=== PATIENT | male | born 1965 | race African-American/Black ===

== ENCOUNTER 2016-10-06 18:00 | Emergency (ER) | payer OTHER, SELFPAY ==
[~2016-10-06] VITALS: Ht 182.9 cm; Wt 69.2 kg
[~2016-10-06 18:00] MED LIST: AMLO25TA PO; HYDR-3716 PO; LISI40TAB PO; OMEP40CA2 PO
[2016-10-06 18:01] VITALS: BP 130/88
[2016-10-06] MEDS ORDERED: LISI40TAB PO ×2 (18:10→18:42)
[2016-10-06] MEDS ORDERED: OMEP40CA2 PO ×2 (18:10→18:42)
[2016-10-06] MEDS ORDERED: HYDR-3716 PO (18:10)
[2016-10-06] MEDS ORDERED: AMLO25TA PO (18:10)
[2016-10-06] MEDS ORDERED: NORV5TAB PO (18:42)
[2016-10-06] MEDS ORDERED: VICO7.5T11 PO (18:42)
== END 2016-10-06 18:52 | disposition home or self-care (01) ==
LOC: M ED 18:00
DX: Z76.0 Encounter for issue of repeat prescription (principal); I10 Essential (primary) hypertension; K27.9 Peptic ulcer, site unspecified, unspecified as acute or chronic, without hemorrhage or perforation; Z79.899 Other long term (current) drug therapy

== ENCOUNTER 2016-10-12 12:18 | Emergency (ER) | payer OTHER, SELFPAY ==
[~2016-10-12] VITALS: Ht 182.9 cm; Wt 70.7 kg
[2016-10-12 12:18] VITALS: BP 113/69
[~2016-10-12 12:18] MED LIST changes: +NORV5TAB PO; +VICO7.5T11 PO
[2016-10-12] MEDS ORDERED: NORC10TA21 PO (12:40)
[2016-10-12] MEDS ORDERED: NORCOTAB PO (13:18)
== END 2016-10-12 13:34 | disposition home or self-care (01) ==
LOC: M ED 12:18
DX: G89.29 Other chronic pain (principal); M54.5 Low back pain; Z76.0 Encounter for issue of repeat prescription; K28.3 Acute gastrojejunal ulcer without hemorrhage or perforation; Z79.899 Other long term (current) drug therapy

== ENCOUNTER 2016-10-16 11:32 | Emergency (ER) | payer OTHER, SELFPAY ==
[~2016-10-16] VITALS: Ht 182.9 cm; Wt 72.2 kg
[~2016-10-16 11:32] MED LIST changes: +NORC10TA21 PO; +NORCOTAB PO
[2016-10-16] MEDS ORDERED: LORT1TAB2 PO (13:53)
[2016-10-16 14:04] VITALS: BP 132/70
== END 2016-10-16 14:13 | disposition home or self-care (01) ==
LOC: M ED 11:32
DX: Z76.0 Encounter for issue of repeat prescription (principal); G89.29 Other chronic pain; M54.9 Dorsalgia, unspecified; F17.200 Nicotine dependence, unspecified, uncomplicated; Z79.899 Other long term (current) drug therapy

== ENCOUNTER 2016-11-09 12:42 | Emergency (ER) | payer OTHER, SELFPAY ==
[~2016-11-09] VITALS: Ht 182.9 cm; Wt 77.3 kg
[2016-11-09 12:42] VITALS: BP 120/72
[~2016-11-09 12:42] MED LIST changes: +LORT1TAB2 PO
[2016-11-09] MEDS ORDERED: ACETAMINOPH W/CODEINE #3 TAB UD PO ONE (13:30)
== END 2016-11-09 13:38 | disposition home or self-care (01) ==
LOC: M ED 12:42
DX: Z76.0 Encounter for issue of repeat prescription (principal); Z72.89 Other problems related to lifestyle; G89.29 Other chronic pain; M54.5 Low back pain; I10 Essential (primary) hypertension; K28.9 Gastrojejunal ulcer, unspecified as acute or chronic, without hemorrhage or perforation; Z79.899 Other long term (current) drug therapy; Z79.891 Long term (current) use of opiate analgesic

== ENCOUNTER 2018-02-23 13:32 | Emergency (ER) | payer MEDICAID, SELFPAY ==
[2018-02-23] MEDS: NORCO, ANEXSIA 5/325MG TABLET (HYDROcodone/ACETAMINOPHEN) PO (14:20)
== END 2018-02-23 14:23 | disposition home or self-care (01) ==
LOC: M ED 13:32
DX: Z76.0 Encounter for issue of repeat prescription (principal); I10 Essential (primary) hypertension; M54.5 Low back pain; K27.9 Peptic ulcer, site unspecified, unspecified as acute or chronic, without hemorrhage or perforation; Z87.891 Personal history of nicotine dependence; Z79.899 Other long term (current) drug therapy
CPT/HCPCS: 99282

== ENCOUNTER 2018-02-28 14:16 | Emergency (ER) | payer MEDICAID ==
[2018-02-28] MEDS: NORCO 5/325MG TABLET (BULK FOR ED) PO (18:30)
== END 2018-02-28 18:34 | disposition home or self-care (01) ==
LOC: M ED 14:16
DX: G89.29 Other chronic pain (principal); M54.9 Dorsalgia, unspecified; I10 Essential (primary) hypertension; M41.9 Scoliosis, unspecified; M51.9 Unspecified thoracic, thoracolumbar and lumbosacral intervertebral disc disorder; Z79.899 Other long term (current) drug therapy
CPT/HCPCS: 99283

== ENCOUNTER 2018-03-08 12:03 | Emergency (ER) | payer MEDICAID | END 2018-03-08 13:01 | disposition home or self-care (01) | LOC: M ED 12:03 | DX: G89.29 Other chronic pain (principal); M54.9 Dorsalgia, unspecified; I10 Essential (primary) hypertension; Z76.0 Encounter for issue of repeat prescription | CPT/HCPCS: 99282 ==

== ENCOUNTER 2018-03-14 18:03 | Emergency (ER) | payer MEDICAID ==
[2018-03-14] MEDS: METHOCARBAMOL 750 MG TAB PO (21:15)
[2018-03-14] MEDS: NORCO 5/325MG TABLET (BULK FOR ED) PO (21:15)
== END 2018-03-14 21:16 | disposition home or self-care (01) ==
LOC: M ED 18:03
DX: Z76.0 Encounter for issue of repeat prescription (principal); G89.29 Other chronic pain; M54.5 Low back pain; I10 Essential (primary) hypertension; K21.9 Gastro-esophageal reflux disease without esophagitis; Z79.899 Other long term (current) drug therapy
CPT/HCPCS: 99283

== ENCOUNTER → 2018-04-11 | Outpatient (REF) | payer MEDICAID, OTHER ==
[~2018-04-11] MED LIST changes: +AMLO5TAB6 PO; +LISI40TA PO; -LISI40TAB PO; +NAPR-50 PO; +ROBA500T PO
[2018-04-11 10:35] LABS: BLOOD UREA NITROGEN 14 MG/DL (7-18); CALCIUM LEVEL 9.1 MG/DL (8.5-10.1); CARBON DIOXIDE LEVEL 24 MEQ/L (21-32); CHLORIDE LEVEL 106 MEQ/L (98-107); CHOLESTEROL LEVEL 224 MG/DL (<200); CHOLESTEROL RISK RATIO 3.672 (<5); CREATININE FOR GFR 1.38 MG/DL (0.70-1.30); GLOMERULAR FILTRATION RATE > 60.0 (>56); GLUCOSE, FASTING 98 MG/DL (70-100); HDL CHOLESTEROL 61 MG/DL (>40); LDL CHOLESTEROL 148 MG/DL (<100); NON-HDL-C 163 MG/DL; POTASSIUM SERUM 4.9 MEQ/L (3.5-5.1); SODIUM LEVEL 139 MEQ/L (136-145); TRIGLYCERIDES LEVEL 73 MG/DL (<150)
== END ==
LOC: M SFHCPLAZ 08:21
PROVIDERS: ATTEND Family Medicine
DX: Z13.1 Encounter for screening for diabetes mellitus (principal); Z13.220 Encounter for screening for lipoid disorders

== ENCOUNTER → 2019-04-10 | Outpatient (REF) | payer MEDICAID, OTHER ==
[~2019-04-10] MED LIST changes: +HYDR-3715 PO; -NAPR-50 PO; +NAPR-837 PO; -NORC10TA21 PO; +NORC1TAB5 PO; -NORCOTAB PO; -OMEP40CA2 PO; +OMEP40CA97 PO; -VICO7.5T11 PO; +VICO7.5T12 PO
== END ==
LOC: M SFHCPLAZ 15:33
PROVIDERS: ATTEND Internal Medicine
DX: Z53.9 Procedure and treatment not carried out, unspecified reason (principal)

== ENCOUNTER → 2019-09-06 | Outpatient (REF) | payer OTHER | LOC: M LAB REF 12:28 | PROVIDERS: ATTEND Surgery | DX: Z11.59 Encounter for screening for other viral diseases (principal) ==

== ENCOUNTER → 2019-12-01 | Outpatient (CLI) | payer OTHER ==
[~2019-12-01] MED LIST changes: +AMLO1TAB24 PO; -AMLO5TAB6 PO
[2019-12-01 14:43] LABS: ALBUMIN 3.9 GM/DL (3.2-5.2); ALT/SGPT 22 U/L (12-78); BILIRUBIN,TOTAL 0.2 MG/DL (0.2-1.0); BLOOD UREA NITROGEN 15 MG/DL (7-18); CALCIUM LEVEL 9.8 MG/DL (8.5-10.1); CARBON DIOXIDE LEVEL 29 MEQ/L (21-32); CHLORIDE LEVEL 106 MEQ/L (98-107); CREATININE FOR GFR 1.44 MG/DL (0.70-1.30); GLOMERULAR FILTRATION RATE > 60.0 (>56); GLUCOSE, FASTING 94 MG/DL (70-100); POTASSIUM SERUM 4.9 MEQ/L (3.5-5.1); SODIUM LEVEL 141 MEQ/L (136-145); TOTAL PROTEIN 7.7 GM/DL (6.4-8.2)
[2019-12-01 18:23] LABS: HEPATITIS C VIRUS ABY INDEX 0.2 INDEX (<0.8)
== END ==
LOC: M PLALAB 11:42
PROVIDERS: ATTEND Student in an Organized Health Care Education/Training Program
DX: G89.29 Other chronic pain (principal)

== ENCOUNTER → 2019-12-25 | Outpatient (REF) | payer OTHER ==
[2019-12-28 09:10] LABS: CANNABINOID, URINE Positive (Cutoff=20); CARBOXY THC (GC/MS) 79 ng/mL (Cutoff=10); CREATININE, URINE 52.7 mg/dL (20.0-300.0)
== END ==
LOC: M LAB REF 17:50
PROVIDERS: ATTEND Student in an Organized Health Care Education/Training Program
DX: M19.90 Unspecified osteoarthritis, unspecified site (principal)

== ENCOUNTER → 2020-06-03 | Outpatient (REF) | payer OTHER ==
[~2020-06-03] MED LIST changes: -LISI40TA PO; +LISI40TA4 PO
== END ==
LOC: M LAB REF 15:38
PROVIDERS: ATTEND Surgery
DX: R97.20 Elevated prostate specific antigen [PSA] (principal)

== ENCOUNTER → 2020-09-05 | Outpatient (REF) | payer OTHER | LOC: M LAB REF 09:24 | PROVIDERS: ATTEND Surgery | DX: U07.1 COVID-19 (principal) ==

== ENCOUNTER → 2020-12-17 | Outpatient (REF) | payer MEDICAID ==
[~2020-12-17] MED LIST changes: +OMEP40CA4 PO; -OMEP40CA97 PO
== END ==
LOC: M SFHCPLAZ 11:37
PROVIDERS: ATTEND Family Medicine
DX: Z53.9 Procedure and treatment not carried out, unspecified reason (principal); M54.42 Lumbago with sciatica, left side

== ENCOUNTER → 2021-01-22 | Outpatient (REF) | payer MEDICAID | LOC: M SFHCPLAZ 13:09 | PROVIDERS: ATTEND Student in an Organized Health Care Education/Training Program | DX: Z02.89 Encounter for other administrative examinations (principal) ==

== ENCOUNTER 2021-02-04 05:44 | Observation (INO) | payer MEDICAID, OTHER ==
[~2021-02-04] VITALS: Ht 182.9 cm; Wt 83.5 kg
--- OUTSIDE RECORDS SUMMARY | 2021-02-04 05:48 | CCD ---
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 Active confirmed 517321874 Problem Lumbago with sciatica, left side M54.42 Active confirmed 294195994 Problem History of alcohol abuse F10.11 Active confirmed 247674620 Problem Seasonal allergic rhinitis due to pollen J30.1 Active confirmed 08626450 Problem Lumbago with sciatica, right side M54.41 Active confirmed 647331966195266 Problem Other chronic pain G89.29 Active confirmed 8 6886103 Problem Gastroesophageal reflux disease without esophagitis K21.9 Active confirmed 541965266 Problem Essential hypertension I10 Active confirmed 22068580 ALLERGIES No Known Allergies ENCOUNTERS from 1965 to 2021-01-14 Encounter Location Date Provider Diagnosis [address] [phone] [place] [address] 15 Dec, 2020 Walker Parks Other chronic pain G89.29 an d Viral upper respiratory tract infection J06.9 IMMUNIZATIONS Vaccine Route Administration Date Status Influenza Denied Unknown Apr 11, 2018 Refused SOCIAL HISTORY Tobacco Use: Social History Observation Description Date Details (start date - stop date) Former Smoker Sex Assigned At : Social History Observation Description Sex Assigned At Unknown Education: Question Answer Notes Level of Education: High School Audit Question Answer Notes Total Score: 1 Interpretation: Alcohol Education Language: Question Answer Notes Languages spoken: Irish Hinduism: Question Answer Notes Hinduism 06 Pentecostalism Sexual Hx: Question Answer Notes Had sex in the last 12 months (vaginal, oral, or anal)? No Have you ever had an STD? No Drug and Alcohol Question Answer Notes Total Score: 0 Interpretation: No problems reported Alcohol Screening: Question Answer Notes Did you have a drink containing alcohol in the past year? No Points 0 Interpretation Negative Tobacco Use: Question Answer Notes Are you a: former smoker How long has it been since you last smoked? 5-10 years REASON FOR REFERRAL No Information VITAL SIGNS No information MEDICATIONS Medication SIG (Take, Route, Frequency, Duration) Notes Start Da te End Date Status Ondansetron HCl 4 MG 1 tablet Orally Once a day for 14 day(s) Apr, Active Gabapentin 800 MG 1 tablet Orally three times daily for 30 days Apr, Active amLODIPine Besylate 5 MG 1 tablet Orally Once a day for 30 Days Active Percocet 5-325 MG 1 tablet as needed Orally every 6 hrs for 12 d ays Nov, Not-Taking Omeprazole 40 MG 1 capsule Orally Once a day for 30 days Active Lisinopril 40 MG 1 tablet Orally Once a day for 30 days Active Loratadine 10 MG 1 tablet Orally Once a day for 30 day(s) Nov, Active Percocet 5-325 MG 1 tablet as needed Orally every 6 hrs for 28 d ays Dec, Active Ibuprofen 600 MG 1 tablet with food or milk a s needed Orally with food Three times a day for 14 day(s) Apr, Not-Ta unruly PROCEDURES No Information RESULTS No Results REASON FOR VISIT refills MEDICAL (GENERAL) HISTORY Type Description Date Medical History Reflux Medical History Hypertension, goal < 140/< 90 Medical History Scoliosis (juvenile) with de generative back disease, on Percocet, with plans to wean (see below) Surgical History Denies Hospitalization History Denies Goals Section No Information Health Concerns No Information MEDICAL EQUIPMENT No Information MENTAL STATUS No Information FUNCTIONAL STATUS No Information ASSESSMENTS Encounter Date Diagnosis Assessment Notes Treatment Notes Treatm ent Clinical Notes Dec, Other chronic pain (ICD-10 - G89.29) Dec, Viral upper respiratory tract infection (ICD-10 - J06.9) PLAN OF TREATMENT Medication Medication Name Sig Start Date Stop Date Ondansetron HCl 4 MG 1 tablet Orally Once a day for 14 day(s) Apr, Loratadine 10 MG 1 tablet Orally Once a day for 30 day(s) Nov Percocet 5-325 MG 1 tablet as needed Orally every 6 hrs fo r 28 days Dec, Lisinopril 40 MG 1 tablet Orally Once a day for 30 days Gabapentin 800 MG 1 tablet Orally three times daily for 30 days Apr, Omeprazole 40 MG 1 capsule Orally Once a day for 30 days Next Appt Details Provider Name:Walker Parks, 2021-01-28 11: 30:00 AM, [address] [facility], , [place], [address], Insurance Providers Payer Name Payer Address Payer Phone Insured Name Patient Relati onship to Insured Coverage Start Date Coverage End Date MEDICAID [employer] [address] [facility] [address] LARON STROUD JR self
--- OUTSIDE RECORDS SUMMARY | 2021-02-04 05:48 | CCD ---
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 Active confirmed 011423236 Problem Lumbago with sciatica, left side M54.42 Active confirmed 881655813 Problem History of alcohol abuse F10.11 Active confirmed 542689822 Problem Seasonal allergic rhinitis due to pollen J30.1 Active confirmed 45841406 Problem Lumbago with sciatica, right side M54.41 Active confirmed 513531573839029 Problem Other chronic pain G89.29 Active confirmed 8 4837805 Problem Gastroesophageal reflux disease without esophagitis K21.9 Active confirmed 968188434 Problem Essential hypertension I10 Active confirmed 74670831 ALLERGIES No Known Allergies ENCOUNTERS from 1965 to 2021-01-21 Encounter Location Date Provider Diagnosis [address] [phone] [place] [address] Dec, Walker Parks IMMUNIZATIONS Vaccine Route Administration Date Status Influenza [...] Education Language: Question Answer Notes Languages spoken: Lithuanian Islam: Question Answer Notes Islam 06 Congregation Sexual Hx: Question Answer Notes Had sex [...] Information RESULTS No Results REASON FOR VISIT wanting to speak to a cyber workforce developer and manager (GENERAL) HISTORY Type Description Date Medical History Reflux Medical History Hypertension, goal < 140/< 90 Medical History Scoliosis (juvenile) with de generative back disease, on Percocet, with plans to wean (see below) Surgical History Denies Hospitalization History Denies Goals Section No Information Health Concerns No Information MEDICAL EQUIPMENT No Information MENTAL STATUS No Information FUNCTIONAL STATUS No Information ASSESSMENTS No Information PLAN OF TREATMENT Medication Medication Name Sig [...] Name:Walker Parks, 2021-01-28 11: 30:00 AM, [address] [facility], , [place], [address], Insurance Providers Payer Name Payer Address Payer Phone Insured Name Patient Relati onship to Insured Coverage Start Date Coverage End Date MEDICAID [employer] [address] [facility] [address] LARON STROUD JR self
--- OUTSIDE RECORDS SUMMARY | 2021-02-04 05:48 | CCD ---
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 Active confirmed 356413487 Problem Lumbago with sciatica, left side M54.42 Active confirmed 440591679 Problem History of alcohol abuse F10.11 Active confirmed 425455854 Problem Seasonal allergic rhinitis due to pollen J30.1 Active confirmed 68402842 Problem Lumbago with sciatica, right side M54.41 Active confirmed 246939430442785 Problem Other chronic pain G89.29 Active confirmed 8 8849116 Problem Gastroesophageal reflux disease without esophagitis K21.9 Active confirmed 761868516 Problem Essential hypertension I10 Active confirmed 38880215 ALLERGIES No Known Allergies ENCOUNTERS from 1965 to 2021-01-07 Encounter Location Date Provider Diagnosis [address] [phone] [place] [address] Nov, Walker Parks IMMUNIZATIONS Vaccine Route Administration Date [...] Education Language: Question Answer Notes Languages spoken: Thai Orthodoxy: Question Answer Notes Orthodoxy 06 Christianity Sexual Hx: Question Answer Notes Had sex [...] Notes Start Da te End Date Status Loratadine 10 MG 1 tablet Orally Once a day for 30 day(s) Nov, Active Ondansetron HCl 4 MG 1 tablet Orally Once a day for 14 day(s) Apr, Active Ibuprofen 600 MG 1 tablet with food or milk a s needed Orally with food Three times a day for 14 day(s) Apr, Not-Ta unruly amLODIPine Besylate 5 MG 1 tablet Orally Once a day for 30 Days Active Percocet 5-325 MG 1 tablet as needed Orally every 6 hrs for 28 d ays Nov, Active Gabapentin 800 MG 1 tablet Orally three times daily for 30 days Apr, Active Lisinopril 40 MG 1 tablet Orally Once a day for 30 Active Percocet 5-325 MG 1 tablet as needed Orally every 6 hrs for 12 d ays Nov, Not-Taking Omeprazole 40 MG 1 capsule Orally Once a day for 30 days Active PROCEDURES No Information RESULTS No Results REASON FOR VISIT paperwork for [facility] MEDICAL (GENERAL) HISTORY Type Description Date Medical [...] Medication Name Sig Start Date Stop Date Percocet 5-325 MG 1 tablet as needed Orally every 6 hrs fo r 28 days Nov, Loratadine 10 MG 1 tablet Orally Once a day for 30 day(s) Nov Next Appt Details Provider Name:Walker Parks, 2021-01-28 11: 30:00 AM, [address] [facility], , [place], [address], Insurance Providers Payer Name Payer Address Payer Phone Insured Name Patient Relati onship to Insured Coverage Start Date Coverage End Date MEDICAID [employer] [address] [facility] [id number] LARON STROUD JR self
--- OUTSIDE RECORDS SUMMARY | 2021-02-04 05:48 | CCD ---
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 Active confirmed 346677427 Problem Lumbago with sciatica, left side M54.42 Active confirmed 707694969 Problem History of alcohol abuse F10.11 Active confirmed 124939567 Problem Seasonal allergic rhinitis due to pollen J30.1 Active confirmed 17375759 Problem Lumbago with sciatica, right side M54.41 Active confirmed 622553857012082 Problem Other chronic pain G89.29 Active confirmed 8 0134388 Problem Gastroesophageal reflux disease without esophagitis K21.9 Active confirmed 952754887 Problem Essential hypertension I10 Active confirmed 78634206 ALLERGIES No Known Allergies ENCOUNTERS from 1965 to 2021-01-23 Encounter Location Date Provider Diagnosis [facility] Resident [address] [facility] [address] [phone] [place] [address] Dec, Walker Parks Lumbago with sciatic a, left side M54.42 IMMUNIZATIONS Vaccine Route Administration Date Status Influenza [...] Education Language: Question Answer Notes Languages spoken: Belarusian Sikh: Question Answer Notes Sikh 06 Worship Sexual Hx: Question Answer Notes Had sex [...] times daily for 30 days Apr, Active Ibuprofen 600 MG 1 tablet with food or milk a s needed Orally with food Three times a day for 14 day(s) Apr, Not-Ta unruly amLODIPine Besylate 5 MG 1 tablet Orally Once a day for 30 Days Active Percocet 5-325 MG 1 tablet as needed Orally every 6 hrs for 7 da ys Dec, Active Lisinopril 40 MG 1 tablet Orally [...] Information RESULTS No Results REASON FOR VISIT No Information MEDICAL (GENERAL) HISTORY Type Description Date Medical [...] Treatment Notes Treatm ent Clinical Notes Dec, Lumbago with sciatica, left side (ICD-10 - M54.4 2) PLAN OF TREATMENT Medication Medication Name Sig Start Date Stop Date Ondansetron HCl 4 MG 1 tablet Orally Once a day for 14 day(s) Apr, Loratadine 10 MG 1 tablet Orally Once a day for 30 day(s) Nov Omeprazole 40 MG 1 capsule Orally Once a day for 30 days Lisinopril 40 MG 1 tablet Orally Once a day for 30 days Gabapentin 800 MG 1 tablet Orally three times daily for 30 days Apr, Percocet 5-325 MG 1 tablet as needed Orally every 6 hrs for 7 da ys 28 Dec, 2020 Next Appt Details Provider Name:Walker Parks, 2021-01-28 11: 30:00 AM, [address] [facility], , [place], [address], Insurance Providers Payer Name Payer Address Payer Phone Insured Name Patient Relati onship to Insured Coverage Start Date Coverage End Date MEDICAID [employer] [address] [facility] [address] LARON STROUD JR self
--- OUTSIDE RECORDS SUMMARY | 2021-02-04 05:48 | CCD ---
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 Active confirmed 035340009 Problem Lumbago with sciatica, left side M54.42 Active confirmed 693668175 Problem History of alcohol abuse F10.11 Active confirmed 865372309 Problem Seasonal allergic rhinitis due to pollen J30.1 Active confirmed 67991283 Problem Lumbago with sciatica, right side M54.41 Active confirmed 648643598064978 Problem Other chronic pain G89.29 Active confirmed 8 3988688 Problem Gastroesophageal reflux disease without esophagitis K21.9 Active confirmed 024790454 Problem Essential hypertension I10 Active confirmed 01266091 ALLERGIES No Known Allergies ENCOUNTERS from 1965 to 2021-01-12 Encounter Location Date Provider Diagnosis [facility] Resident [address] [facility] [address] [phone] [place] [address] Nov, Walker Parks Lumbago with sciatic a, left side M54.42 ; Health maintenance examination Z00.00 ; Other chronic pain G89.29 and Seasonal allergic rhinitis due to pollen J30.1 IMMUNIZATIONS Vaccine Route Administration Date Status Influenza [...] Education Language: Question Answer Notes Languages spoken: Anguillan Hoahaoism: Question Answer Notes Hoahaoism 06 Zoroastrian Sexual Hx: Question Answer Notes Had sex [...] last smoked? 5-10 years REASON FOR REFERRAL from 1965 to 2021-01-12 Reason Dear , my patient is due for screening colonoscopy. Please evaluate and treat. Thank you Diagnosis 1 Health maintenance examinati on (00.) Referral Organization [facility] Resident Referring Provider First Name Walker Referring Provider Last Name Kasey Referring Provider Specialty Family Medicine Referred Provider MARIELLA FABIAN Referral Priority Routine VITAL SIGNS Weight 178.2 lbs Nov, Weight-kg 80.83 kg Nov, Height 72.5 in Nov, BMI 23.83 kg/m2 Nov, Heart Rate 64 /min Nov, Respiratory Rate 18 /min Nov, Temperature 99.2 degrees Fahrenheit Nov, Oximetry 97 Nov, Blood pressure systolic 118 mm Hg Nov, Blood pressure diastolic 76 mm Hg Nov, MEDICATIONS Medication SIG (Take, Route, Frequency, Duration) [...] day for 14 day(s) Apr, Not-Ta unruly Gabapentin 800 MG 1 tablet Orally three times daily for 30 days Apr, Active Omeprazole 40 MG 1 capsule Orally Once a day for 30 days Active Percocet 5-325 MG 1 tablet as needed Orally every 6 hrs for 12 d ays Nov, Not-Taking Lisinopril 40 MG 1 tablet Orally Once a day for 30 Active amLODIPine Besylate 5 MG 1 tablet Orally Once a day for 30 Days Active Percocet 5-325 MG 1 tablet as needed Orally every 6 hrs for 28 d ays Nov, Active PROCEDURES No Information RESULTS No Results REASON FOR VISIT Annual Wellness MEDICAL (GENERAL) HISTORY Type Description Date Medical [...] Notes Treatment Notes Treatm ent Clinical Notes Nov, Lumbago with sciatica, left side (ICD-10 - M54.4 2) Reference #:[id number] last filled 12/17/2020 presciber id: [id number] 28 day supply qt: 112 sent today for the patient. Refilling Percocet for the patient on which his pain has been stable for years. We will closely follow him up and get repeat drug evaluations for him to be able to continuously stay on pain medications. Patient was explained the process. Patient verbalized understanding Nov, Health maintenance examination (ICD-10 - Z00.00) Patient reports no acute complaints except for the pain. His chronic conditions continue to remain stable. He takes his medications as prescribed. Denies any side effects from being on medication. 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 But ever since he stopped his GERD has improved. Continues taking omeprazole 40 mg. Patient was told treatment of 8 weeks should be sufficient which the patient has completed already. Side effects of omeprazole were described to the patient. Patient verbalized understanding We talked about switching to H2 receptor blockers. However he thinks he is stable on omeprazole and does not want to change at the moment. patient is due for colonoscopy. Referral to Dr. Fabian has been sent. Patient has not due for any vaccinations today. Patient continues to be sober. Denies any kind of alcohol intake. I will follow-up with him in the next 4-6 weeks because of him being on opioids. Nov, Other chronic pain (ICD-10 - G89.29) Nov, Seasonal allergic rhinitis due to pollen (ICD-10 - J30.1) Patient was advised to wear a mask outdoors. He does not complain of gasping for air or his throat closing up completely. No worsening of his allergies. PLAN OF TREATMENT Medication Medication Name Sig Start Date Stop Date Gabapentin 800 MG 1 tablet Orally three times daily for 30 days Apr, Loratadine 10 MG 1 tablet Orally Once a day for 30 day(s) Nov Percocet 5-325 MG 1 tablet as needed Orally every 6 hrs fo r 28 days Nov, Treatment Notes Assessment Notes Clinical Notes Lumbago with sciatica, left side Referen ce #:[id number] filled 12/17/2020resciber id: [id number] day supply qt: 112 sent today for the patient.Refilling Percocet for the patient on which his pain has been stable for years. We will closely follow him up and get repeat drug evaluations for him to be able to continuously stay on pain medications.Patient was explained the process. Patient verbalized understanding Health maintenance examination Patient r eports no acute complaints except for the pain.His chronic conditions continue to remain stable.He takes his medications as prescribed.Denies any side effects from being on medication. 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 But ever since he stopped his GERD has improved. Continues taking omeprazole 40 mg.Patient was told treatment of 8 weeks should be sufficient which the patient has completed already.Side effects of omeprazole were described to the patient. Patient verbalized understandingWe talked about switching to H2 receptor blockers. However he thinks he is stable on omeprazole and does not want to change at the moment.patient is due for colonoscopy. Referral to Dr. Fabian has been sent.Patient has not due for any vaccinations today.Patient continues to be sober. Denies any kind of alcohol intake.I will follow-up with him in the next 4-6 weeks because of him being on opioids. Seasonal allergic rhinitis due to pollen Patient was advised to wear a mask outdoors.He does not complain of gasping for air or his throat closing up completely. No worsening of his allergies. Treatment Notes Test Name Order Date DRUG EVAL SCREEN BLOOD 7 DRUGS 2020-12-17 Referrals Referral Date Details Dear , my patient is due for screening colonoscopy. Please evaluate and treat. Thank you, MARIELLA FABIAN Next Appt Details 6 Months Reason:follow up on pain meds a d essential HTN Provider Name:Walker Parks, 2021-01-28 11: 30:00 AM, [address] [facility], , [place], [address], Follow Up:6 Monthsfollow up on pain meds ad essential HTN Insurance Providers Payer Name Payer Address Payer Phone Insured Name Patient Relati onship to Insured Coverage Start Date Coverage End Date MEDICAID [employer] [address] [facility] [address] LARON STROUD JR self
--- OUTSIDE RECORDS SUMMARY | 2021-02-04 05:48 | CCD ---
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 Active confirmed 543464718 Problem Lumbago with sciatica, left side M54.42 Active confirmed 364212468 Problem History of alcohol abuse F10.11 Active confirmed 462223838 Problem Seasonal allergic rhinitis due to pollen J30.1 Active confirmed 61694208 Problem Lumbago with sciatica, right side M54.41 Active confirmed 376326925461942 Problem Other chronic pain G89.29 Active confirmed 8 8142996 Problem Gastroesophageal reflux disease without esophagitis K21.9 Active confirmed 839728538 Problem Essential hypertension I10 Active confirmed 30214941 ALLERGIES No Known Allergies ENCOUNTERS from 1965 to 2021-01-23 Encounter Location Date Provider Diagnosis [address] [phone] [place] [address] Dec, Walker Parks IMMUNIZATIONS Vaccine Route Administration [...] Education Language: Question Answer Notes Languages spoken: Yakut Baptist: Question Answer Notes Baptist 06 Shinto Sexual Hx: Question Answer Notes Had sex [...] Information RESULTS No Results REASON FOR VISIT Opioid pain contract MEDICAL (GENERAL) HISTORY Type Description Date Medical [...] Name:Walker Parks, 2021-01-28 11: 30:00 AM, [address] [facility], , [place], [address], Insurance Providers Payer Name Payer Address Payer Phone Insured Name Patient Relati onship to Insured Coverage Start Date Coverage End Date MEDICAID [employer] [address] [facility] [id number] LARON STROUD JR self
--- OUTSIDE RECORDS SUMMARY | 2021-02-04 05:48 | CCD ---
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 Active confirmed 142795523 Problem Lumbago with sciatica, left side M54.42 Active confirmed 133454481 Problem History of alcohol abuse F10.11 Active confirmed 674374516 Problem Seasonal allergic rhinitis due to pollen J30.1 Active confirmed 48851371 Problem Lumbago with sciatica, right side M54.41 Active confirmed 520815590490318 Problem Other chronic pain G89.29 Active confirmed 8 7313611 Problem Gastroesophageal reflux disease without esophagitis K21.9 Active confirmed 278127781 Problem Essential hypertension I10 Active confirmed 83891675 ALLERGIES No Known Allergies ENCOUNTERS from 1965 to 2021-01-14 Encounter Location Date Provider Diagnosis [address] [phone] [place] [address] Dec, Walker Parks Lumbago with sciatica, left side M54.42 ; Other chronic pain G89.29 and Viral upper respiratory tract infection J06.9 IMMUNIZATIONS [...] Education Language: Question Answer Notes Languages spoken: Romanian Jain: Question Answer Notes Jain 06 Muslim Sexual Hx: Question Answer Notes Had sex [...] Information RESULTS No Results REASON FOR VISIT Percocet , Gabapentin MEDICAL (GENERAL) HISTORY Type Description Date Medical [...] sciatica, left side (ICD-10 - M54.4 2) Dec, Other chronic pain (ICD-10 - G89.29) [...] Name:Walker Parks, 2021-01-28 11: 30:00 AM, [address] [facility], , [place], [address], Insurance Providers Payer Name Payer Address Payer Phone Insured Name Patient Relati onship to Insured Coverage Start Date Coverage End Date MEDICAID [employer] [address] [facility] [address] LARON STROUD JR self
--- OUTSIDE RECORDS SUMMARY | 2021-02-04 05:48 | CCD ---
Author Author [facility] Organization [facility] Address Unknown Phone Unavailable Care Team Providers Care Collar Setter Name Role Phone Walker Parks Unavailable PROBLEMS Type Condition ICD9-CM Code NCW70-TI Code Onset Dates Condition S tatus W/U Status Risk SNOMED Code Notes Problem Juvenile idiopathic scoliosis of thoracolumbar region M41.115 Active confirmed 195821910 Problem Lumbago with sciatica, left side M54.42 Active confirmed 745698407 Problem History of alcohol abuse F10.11 Active confirmed 314118609 Problem Seasonal allergic rhinitis due to pollen J30.1 Active confirmed 16341359 Problem Lumbago with sciatica, right side M54.41 Active confirmed 880551214093338 Problem Other chronic pain G89.29 Active confirmed 8 9310598 Problem Gastroesophageal reflux disease without esophagitis K21.9 Active confirmed 022045451 Problem Essential hypertension I10 Active confirmed 74554704 ALLERGIES No Known Allergies ENCOUNTERS from 1965 to 2021-01-29 Encounter Location Date Provider Diagnosis [facility] [address] [facility] [address] [phone] [place] [address] Jan, Walker Parks IMMUNIZATIONS Vaccine Route Administration Date [...] Education Language: Question Answer Notes Languages spoken: Bahraini Baptism: Question Answer Notes Baptism 06 Restorationist Sexual Hx: Question Answer Notes Had sex [...] Information RESULTS No Results REASON FOR VISIT no showed MEDICAL (GENERAL) HISTORY Type Description Date Medical [...] for 7 da ys 28 Dec, 2020 Insurance Providers Payer Name Payer Address Payer Phone Insured Name Patient Relati onship to Insured Coverage Start Date Coverage End Date MEDICAID [employer] [address] [facility] [id number] LARON STROUD JR self
--- OUTSIDE RECORDS SUMMARY | 2021-02-04 05:48 | CCD ---
Author Author [facility] Organization [facility] [employer] [facility] Address Unknown Phone Unavailable Care Team Providers Care Public Safety Police Name Role Phone Walker Parks Unavailable PROBLEMS ALLERGIES No Known Allergies ENCOUNTERS from 1965 to 2021-01-27 IMMUNIZATIONS SOCIAL HISTORY REASON FOR REFERRAL No Information VITAL SIGNS MEDICATIONS PROCEDURES No Information RESULTS No Results REASON FOR VISIT MEDICAL (GENERAL) HISTORY Goals Section Health Concerns MEDICAL EQUIPMENT No Information MENTAL STATUS FUNCTIONAL STATUS ASSESSMENTS No Information PLAN OF TREATMENT Insurance Providers
--- OUTSIDE RECORDS SUMMARY | 2021-02-04 05:49 | CCD ---
Author Author [facility] Organization [facility] Address Unknown Phone Unavailable Care Team Providers Care Dental Assisting Instructor Name Role Phone Walker Parks Unavailable PROBLEMS Type Condition ICD9-CM Code [id number] Code Onset Dates Condition S tatus W/U Status Risk SNOMED Code Notes Problem Juvenile idiopathic scoliosis of thoracolumbar region M41.115 Active confirmed 840997720 Problem Lumbago with sciatica, left side M54.42 Active confirmed 390144276 Problem History of alcohol abuse F10.11 Active confirmed 852203204 Problem Seasonal allergic rhinitis due to pollen J30.1 Active confirmed 26146502 Problem Lumbago with sciatica, right side M54.41 Active confirmed 981252613526665 Problem Other chronic pain G89.29 Active confirmed 8 6224143 Problem Gastroesophageal reflux disease without esophagitis K21.9 Active confirmed 419503735 Problem Essential hypertension I10 Active confirmed 54935621 ALLERGIES No Known Allergies ENCOUNTERS from 1965 to 2020-12-23 Encounter Location Date Provider Diagnosis [address] [phone] [place] [address] Nov, Walker Parks Lumbago with sciatica, left side M54.42 IMMUNIZATIONS Vaccine Route Administration [...] Education Language: Question Answer Notes Languages spoken: Scottish Advent: Question Answer Notes Advent 06 Catholic Sexual Hx: Question Answer Notes Had sex [...] Information RESULTS No Results REASON FOR VISIT oxycodone-acetaminophen 5-325mg tabs MEDICAL (GENERAL) HISTORY Type Description Date Medical [...] Name:Walker Parks, 2021-01-28 11: 30:00 AM, [address] [facility], , [place], [address], Insurance Providers Payer Name Payer Address Payer Phone Insured Name Patient Relati onship to Insured Coverage Start Date Coverage End Date MEDICAID [employer] [address] [facility] [id number] LARON STROUD JR self
--- OUTSIDE RECORDS SUMMARY | 2021-02-04 05:49 | CCD ---
Author Author [facility] Organization [facility] Address Unknown Phone Unavailable Care Team Providers Care Supervising Nurse Name Role Phone Walker Parks Unavailable PROBLEMS Type Condition ICD9-CM Code OFM68-NZ Code Onset Dates Condition S tatus W/U Status Risk SNOMED Code Notes Problem Lumbago with sciatica, left side M54.42 Active confirmed 569275410 Problem Essential hypertension I10 Active confirmed 91833055 Problem History of alcohol abuse F10.11 Active confirmed 088507233 Problem Lumbago with sciatica, right side M54.41 Active confirmed 912710550148136 Problem Other chronic pain G89.29 Active confirmed 8 0103683 Problem Juvenile idiopathic scoliosis of thoracolumbar region M41.115 Active confirmed 311582509 Problem Gastroesophageal reflux disease without esophagitis K21.9 Active confirmed 706275278 ALLERGIES No Known Allergies ENCOUNTERS from 1965 to 2020-12-06 Encounter Location Date Provider Diagnosis [address] [phone] [place] [address] 07 Nov, 2020 Walker Parks Other chronic pain G89.29 [...] Education Language: Question Answer Notes Languages spoken: Lao Hoahaoism: Question Answer Notes Hoahaoism 06 Samaritan Sexual Hx: Question Answer Notes Had sex [...] Notes Start Da te End Date Status Ibuprofen 600 MG 1 tablet with food or milk a s needed Orally with food Three times a day for 14 day(s) Apr, Not-Ta unruly Gabapentin 800 MG 1 tablet Orally three times daily for 30 days Apr, Active Ondansetron HCl 4 MG 1 tablet Orally Once a day for 14 day(s) Apr, Active Lisinopril 40 MG 1 tablet Orally Once a day for 30 Active Percocet 5-325 MG 1 tablet as needed Orally every 6 hrs for 12 d ays Nov, Active Percocet 5-325 MG 1 tablet as needed Orally every 6 hrs for 28 d ays Dec, Active Omeprazole 40 MG 1 capsule Orally Once a day for 30 days Active amLODIPine Besylate 5 MG 1 tablet Orally Once a day for 30 Days Active PROCEDURES No Information RESULTS No Results REASON FOR VISIT meds - out of meds MEDICAL (GENERAL) HISTORY Type Description Date Medical [...] Treatment Notes Treatm ent Clinical Notes Nov, Other chronic pain (ICD-10 - G89.29) Nov, Viral upper respiratory tract infection (ICD-10 - J06.9) PLAN OF TREATMENT Medication Medication Name Sig Start Date Stop Date Omeprazole 40 MG 1 capsule Orally Once a day for 30 days Percocet 5-325 MG 1 tablet as needed Orally every 6 hrs fo r 12 days Nov, amLODIPine Besylate 5 MG 1 tablet Orally Once a day for 30 Days Gabapentin 800 MG 1 tablet Orally three times daily for 30 days Apr, Next Appt Details Provider Name:Walker Parks, 2020-12-17 11: 00:00 AM, [address] [facility], , [place], [address], Insurance Providers Payer Name Payer Address Payer Phone Insured Name Patient Relati onship to Insured Coverage Start Date Coverage End Date MEDICAID [employer] [address] [facility] [id number] LARON STROUD JR self
--- OUTSIDE RECORDS SUMMARY | 2021-02-04 05:49 | CCD ---
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.115 Active confirmed 068635595 Problem Lumbago with sciatica, left side M54.42 Active confirmed 682669505 Problem History of alcohol abuse F10.11 Active confirmed 723341421 Problem Seasonal allergic rhinitis due to pollen J30.1 Active confirmed 94249508 Problem Lumbago with sciatica, right side M54.41 Active confirmed 434115469408070 Problem Other chronic pain G89.29 Active confirmed 8 9989393 Problem Gastroesophageal reflux disease without esophagitis K21.9 Active confirmed 800194835 Problem Essential hypertension I10 Active confirmed 38698128 ALLERGIES No Known Allergies ENCOUNTERS from 1965 to 2020-12-18 Encounter Location Date Provider Diagnosis [address] [phone] [place] [address] Nov, Walker Parks IMMUNIZATIONS Vaccine Route Administration [...] Education Language: Question Answer Notes Languages spoken: Welsh Mosque: Question Answer Notes Mosque 06 Episcopalian Sexual Hx: Question Answer Notes Had sex [...] a day for 14 day(s) Apr, Active Percocet 5-325 MG 1 tablet as needed Orally every 6 hrs for 28 d ays Nov, Active amLODIPine Besylate 5 MG 1 tablet Orally Once a day for 30 Days Active Omeprazole 40 MG 1 capsule Orally Once a day for 30 days Active Gabapentin 800 MG 1 tablet Orally three times daily for 30 days Apr, Active Lisinopril 40 MG 1 tablet Orally Once a day for 30 Active Percocet 5-325 MG 1 tablet as needed Orally every 6 hrs for 12 d ays Nov, Not-Taking Ibuprofen 600 MG 1 tablet with food or milk a s needed Orally with food Three times a day for 14 day(s) Apr, Not-Ta unruly PROCEDURES No Information RESULTS No Results REASON FOR VISIT transportation MEDICAL (GENERAL) HISTORY Type Description Date Medical [...] day(s) Nov Next Appt Details Provider Name:Walker Pepei, 2021-01-28 11: 30:00 AM, [address] [facility] [address] , , [place], [address], Insurance Providers Payer Name Payer Address Payer Phone Insured Name Patient Relati onship to Insured Coverage Start Date Coverage End Date MEDICAID [employer] [address] [facility] [id number] LARON STROUD JR self
--- OUTSIDE RECORDS SUMMARY | 2021-02-04 05:49 | CCD ---
Author Author [facility] Organization [facility] Address Unknown Phone Unavailable Care Team Providers Care Stack Yield Engineer Name Role Phone TURRIN, CIRILO Unavailable Unavailable TURRIN, CIRILO Unavailable Unavailable TURRIN, CIRILO Unavailable Unavailable TURRIN, CIRILO Unavailable Unavailable NON, PHYSICIAN STAFF Unavailable Unavailable Re-disclosure Warning The records that you are about to access may contain information from federally-assisted alcohol or drug abuse programs. If such information is present, then the following federally mandated warning applies: This information has been disclosed to you from records protected by federal confidentiality rules (42 CFR part 2). The federal rules prohibit you from making any further disclosure of this information unless further disclosure is expressly permitted by the written consent of the person to whom it pertains or as otherwise permitted by 42 CFR part 2. A general authorization for the release of medical or other information is NOT sufficient for this purpose. The Federal rules restrict any use of the information to criminally investigate or prosecute any alcohol or drug abuse patient.The records that you are about to access may contain highly sensitive health information, the redisclosure of which is protected by Article 27-F of the [facility] Public Health law. If you continue you may have access to information: Regarding HIV / AIDS; Provided by facilities licensed or operated by the [facility] Office of Mental Health; or Provided by the [facility] Office for People With Developmental Disabilities. If such information is present, then the following [facility] mandated warning applies: This information has been disclosed to you from confidential records which are protected by state law. State law prohibits you from making any further disclosure of this information without the specific written consent of the person to whom it pertains, or as otherwise permitted by law. Any unauthorized further disclosure in violation of state law may result in a fine or long-term sentence or both. A general authorization for the release of medical or other information is NOT sufficient authorization for further disc losure. Allergies and Adverse Reactions Type Description Substance Reaction Status Data Source(s ) No Known Drug Allergies No Known Drug Allergies [facility] Family History Family Member Name Family Member Gender Family Member Status Date o f Status Description Data Source(s) Unknown Female Problem [facility] ([facility] Encounters Encounter Providers Location Date Indications Data Source(s ) Emergency Attender: CIRILO Krausesultant: STAFF NON 02/04/2021 12:12:00 AM EST [facility] Patient admitted. [place] [address] [facility] [place] [address] 01/28/2021 12:00:00 AM EDT eCW1 ([facility]) [place] [address] [facility] [place] [address] 01/23/2021 12:00:00 AM EDT eCW1 ([facility]) [place] [address] [facility] [place] [address] 01/21/2021 12:00:00 AM EDT eCW1 ([facility]) [place] [address] [facility] [address] 01/20/2021 12:00:00 AM EDT eCW1 ([facility]) [place] [address] [facility] [address] 01/14/2021 12:00:00 AM EDT eCW1 ([facility]) [place] [address] [facility] [address] 01/10/2021 12:00:00 AM EDT eCW1 ([facility]) [place] [address] [facility] [address] 01/08/2021 12:00:00 AM EDT eCW1 ([facility]) [place] [address] [facility] [address] 12/26/2020 12:00:00 AM EDT eCW1 ([facility]) [place] [address] [facility] [address] 12/19/2020 12:00:00 AM EDT eCW1 ([facility]) Outpatient [address] [facility] [address] 12/17/2020 12:00:00 AM EDT eCW1 ([facility]) Unknown [address] [facility] [address] 12/16/2020 12:00:00 AM EDT eCW1 ([facility]) Unknown [address] [facility] [address] 12/03/2020 12:00:00 AM EDT eCW1 ([facility]) Outpatient CPSCAORT-RADCOR 09/11/2020 01:07:00 PM EDT 18B2 [facility] [id number] Unknown [address] [facility] [address] 02/07/2020 12:00:00 AM EST eCW1 ([facility]) Unknown [address] [facility] [address] 01/18/2020 12:00:00 AM EDT eCW1 ([facility]) Unknown [address] [facility] [address] 01/17/2020 12:00:00 AM EDT eCW1 ([facility]) Medications Medication Brand Name Start Date Product Form Dose Route Admi nistrative Instructions Pharmacy Instructions Status Indications Reaction Description Data Source(s) Acetaminophen 325 MG / Oxycodone Hydroch loride 5 MG Oral Tablet [Percocet] Percocet 5-325 MG Percocet 5-325 MG 01/23/2021 12:00:00 AM EDT 1 .0 {tablet_as_needed} active Percocet 5-32 5 MG eCW1 ([facility]) Acetaminophen 325 MG / Oxycodone Hydroch loride 5 MG Oral Tablet [Percocet] Percocet 5-325 MG Percocet 5-325 MG 01/23/2021 12:00:00 AM EDT 1 .0 {tablet_as_needed} active eCW1 ([facility]) Acetaminophen 325 MG / Oxycodone Hydroch loride 5 MG Oral Tablet [Percocet] Percocet 5-325 MG Percocet 5-325 MG 01/23/2021 12:00:00 AM EDT 1 .0 {tablet_as_needed} active Percocet 5-32 5 MG eCW1 ([facility]) Acetaminophen 325 MG / Oxycodone Hydroch loride 5 MG Oral Tablet [Percocet] Percocet 5-325 MG Percocet 5-325 MG 01/14/2021 12:00:00 AM EDT 1 .0 {tablet_as_needed} active Percocet 5-32 5 MG eCW1 ([facility]) Acetaminophen 325 MG / Oxycodone Hydroch loride 5 MG Oral Tablet [Percocet] Percocet 5-325 MG Percocet 5-325 MG 01/14/2021 12:00:00 AM EDT 1 .0 {tablet_as_needed} active Percocet 5-32 5 MG eCW1 ([facility]) Acetaminophen 325 MG / Oxycodone Hydroch loride 5 MG Oral Tablet [Percocet] Percocet 5-325 MG Percocet 5-325 MG 01/14/2021 12:00:00 AM EDT 1 .0 {tablet_as_needed} active Percocet 5-32 5 MG eCW1 ([facility]) Acetaminophen 325 MG / Oxycodone Hydroch loride 5 MG Oral Tablet [Percocet] Percocet 5-325 MG Percocet 5-325 MG 01/14/2021 12:00:00 AM EDT 1 .0 {tablet_as_needed} active Percocet 5-32 5 MG eCW1 ([facility]) Acetaminophen 325 MG / Oxycodone Hydroch loride 5 MG Oral Tablet [Percocet] Percocet 5-325 MG Percocet 5-325 MG 12/23/2020 12:00:00 AM EDT 1 .0 {tablet_as_needed} active Percocet 5-32 5 MG eCW1 ([facility]) Acetaminophen 325 MG / Oxycodone Hydroch loride 5 MG Oral Tablet [Percocet] Percocet 5-325 MG Percocet 5-325 MG 12/23/2020 12:00:00 AM EDT 1 .0 {tablet_as_needed} active Percocet 5-32 5 MG eCW1 ([facility]) Acetaminophen 325 MG / Oxycodone Hydroch loride 5 MG Oral Tablet [Percocet] Percocet 5-325 MG Percocet 5-325 MG 12/23/2020 12:00:00 AM EDT 1 .0 {tablet_as_needed} active Percocet 5-32 5 MG eCW1 ([facility]) Acetaminophen 325 MG / Oxycodone Hydroch loride 5 MG Oral Tablet [Percocet] Percocet 5-325 MG Percocet 5-325 MG 12/17/2020 12:00:00 AM EDT 1 .0 {tablet_as_needed} active Percocet 5-32 5 MG eCW1 ([facility]) Loratadine 10 MG Oral Tablet Loratadine 10 MG 12/17/2020 12:00:00 A M EDT 1.0 {tablet} active Loratadine 10 MG eCW1 ( [facility]) Loratadine 10 MG Oral Tablet Loratadine 10 MG 12/17/2020 12:00:00 A M EDT 1.0 {tablet} active Loratadine 10 MG eCW1 ( [facility]) Loratadine 10 MG Oral Tablet Loratadine 10 MG 12/17/2020 12:00:00 A M EDT 1.0 {tablet} active Loratadine 10 MG eCW1 ( [facility]) Loratadine 10 MG Oral Tablet Loratadine 10 MG 12/17/2020 12:00:00 A M EDT 1.0 {tablet} active Loratadine 10 MG eCW1 ( [facility]) Loratadine 10 MG Oral Tablet Loratadine 10 MG 12/17/2020 12:00:00 A M EDT 1.0 {tablet} active Loratadine 10 MG eCW1 ( [facility]) Loratadine 10 MG Oral Tablet Loratadine 10 MG 12/17/2020 12:00:00 A M EDT 1.0 {tablet} active Loratadine 10 MG eCW1 ( [facility]) Loratadine 10 MG Oral Tablet Loratadine 10 MG 12/17/2020 12:00:00 A M EDT 1.0 {tablet} active Loratadine 10 MG eCW1 ( [facility]) Loratadine 10 MG Oral Tablet Loratadine 10 MG 12/17/2020 12:00:00 A M EDT 1.0 {tablet} active eCW1 ([facility]) Loratadine 10 MG Oral Tablet Loratadine 10 MG 12/17/2020 12:00:00 A M EDT 1.0 {tablet} active Loratadine 10 MG eCW1 ( [facility]) Loratadine 10 MG Oral Tablet Loratadine 10 MG 12/17/2020 12:00:00 A M EDT 1.0 {tablet} active Loratadine 10 MG eCW1 ( [facility]) Loratadine 10 MG Oral Tablet Loratadine 10 MG 12/17/2020 12:00:00 A M EDT 1.0 {tablet} active Loratadine 10 MG eCW1 ( [facility]) Acetaminophen 325 MG / Oxycodone Hydroch loride 5 MG Oral Tablet [Percocet] Percocet 5-325 MG Percocet 5-325 MG 12/05/2020 12:00:00 AM EDT 1 .0 {tablet_as_needed} suspended Percocet 5- 325 MG eCW1 ([facility]) Acetaminophen 325 MG / Oxycodone Hydroch loride 5 MG Oral Tablet [Percocet] Percocet 5-325 MG Percocet 5-325 MG 12/05/2020 12:00:00 AM EDT 1 .0 {tablet_as_needed} suspended Percocet 5- 325 MG eCW1 ([facility]) Acetaminophen 325 MG / Oxycodone Hydroch loride 5 MG Oral Tablet [Percocet] Percocet 5-325 MG Percocet 5-325 MG 12/05/2020 12:00:00 AM EDT 1 .0 {tablet_as_needed} suspended Percocet 5- 325 MG eCW1 ([facility]) Acetaminophen 325 MG / Oxycodone Hydroch loride 5 MG Oral Tablet [Percocet] Percocet 5-325 MG Percocet 5-325 MG 12/05/2020 12:00:00 AM EDT 1 .0 {tablet_as_needed} active Percocet 5-32 5 MG eCW1 ([facility]) Acetaminophen 325 MG / Oxycodone Hydroch loride 5 MG Oral Tablet [Percocet] Percocet 5-325 MG Percocet 5-325 MG 12/05/2020 12:00:00 AM EDT 1 .0 {tablet_as_needed} suspended Percocet 5- 325 MG eCW1 ([facility]) Acetaminophen 325 MG / Oxycodone Hydroch loride 5 MG Oral Tablet [Percocet] Percocet 5-325 MG Percocet 5-325 MG 12/05/2020 12:00:00 AM EDT 1 .0 {tablet_as_needed} suspended Percocet 5- 325 MG eCW1 ([facility]) Acetaminophen 325 MG / Oxycodone Hydroch loride 5 MG Oral Tablet [Percocet] Percocet 5-325 MG Percocet 5-325 MG 12/05/2020 12:00:00 AM EDT 1 .0 {tablet_as_needed} suspended Percocet 5- 325 MG eCW1 ([facility]) Acetaminophen 325 MG / Oxycodone Hydroch loride 5 MG Oral Tablet [Percocet] Percocet 5-325 MG Percocet 5-325 MG 12/05/2020 12:00:00 AM EDT 1 .0 {tablet_as_needed} suspended Percocet 5- 325 MG eCW1 ([facility]) Acetaminophen 325 MG / Oxycodone Hydroch loride 5 MG Oral Tablet [Percocet] Percocet 5-325 MG Percocet 5-325 MG 12/05/2020 12:00:00 AM EDT 1 .0 {tablet_as_needed} suspended Percocet 5- 325 MG eCW1 ([facility]) Acetaminophen 325 MG / Oxycodone Hydroch loride 5 MG Oral Tablet [Percocet] Percocet 5-325 MG Percocet 5-325 MG 12/05/2020 12:00:00 AM EDT 1 .0 {tablet_as_needed} suspended eCW 1 ([facility]) Acetaminophen 325 MG / Oxycodone Hydroch loride 5 MG Oral Tablet [Percocet] Percocet 5-325 MG Percocet 5-325 MG 12/05/2020 12:00:00 AM EDT 1 .0 {tablet_as_needed} suspended Percocet 5- 325 MG eCW1 ([facility]) Acetaminophen 325 MG / Oxycodone Hydroch loride 5 MG Oral Tablet [Percocet] Percocet 5-325 MG Percocet 5-325 MG 12/05/2020 12:00:00 AM EDT 1 .0 {tablet_as_needed} suspended Percocet 5- 325 MG eCW1 ([facility]) Naproxen 500 MG Oral Tablet Naproxen 07/30/2020 12:00:00 AM EDT ORAL active MEDENT ([facility]) Loratadine 10 MG Oral Capsule Loratadine 07/04/2020 12:00:00 AM EDT ORAL active MEDENT ([facility]) Ibuprofen 800 MG Oral Tablet Ibuprofen 04/05/2020 12:00:00 AM EST ORAL active MEDENT ([facility]) Amlodipine 5 MG Oral Tablet Amlodipine Besylate 01/25/2020 12:00:00 A M EDT ORAL active MEDENT ([facility]) Lisinopril 40 MG Oral Tablet Lisinopril 01/25/2020 12:00:00 AM EDT ORAL active MEDENT ([facility]) Omeprazole 40 MG Delayed Release Oral Capsule Omeprazole 01/25/2020 12:00:00 AM EDT ORAL active MEDENT ([facility]) Acetaminophen 325 MG / Oxycodone Hydroch loride 5 MG Oral Tablet [Percocet] Percocet 5-325 MG Percocet 5-325 MG 01/22/2020 12:00:00 AM EDT 1 .0 {tablet_as_needed} active Percocet 5-32 5 MG eCW1 ([facility]) Acetaminophen 325 MG / Oxycodone Hydroch loride 5 MG Oral Tablet [Percocet] Percocet 5-325 MG Percocet 5-325 MG 01/22/2020 12:00:00 AM EDT 1 .0 {tablet_as_needed} active Percocet 5-32 5 MG eCW1 ([facility]) Acetaminophen 325 MG / Oxycodone Hydroch loride 5 MG Oral Tablet [Percocet] Percocet 5-325 MG Percocet 5-325 MG 01/22/2020 12:00:00 AM EDT 1 .0 {tablet_as_needed} active Percocet 5-32 5 MG eCW1 ([facility]) Acetaminophen 325 MG / Oxycodone Hydroch loride 5 MG Oral Tablet [Percocet] Percocet 5-325 MG Percocet 5-325 MG 01/22/2020 12:00:00 AM EDT 1 .0 {tablet_as_needed} active Percocet 5-32 5 MG eCW1 ([facility]) Insurance Providers Payer name Policy type / Coverage type Policy ID Covered constitution party ID Covered constitution party's relationship to king Policy King Plan Information [facility] Individual Policy [facility] [id number] S elf [place] Individual Policy [id number] S elf [place] Medicaid S [id number] S [id number] POMCO P [id number] S [id number] Medicaid S [id number] S [id number] Managed Care - Community Plan [facility] P [id number] S [id number] Managed Care - Community Plan [facility] P [id number] S [id number] Managed Care - Community Plan [facility] P [id number] S [id number] Medicaid S [id number] S [id number] [facility] [id number] [facility] [id number] Self [facility] Care o Commercial [id number] Self [id number] ANSI-Medicaid [id number] ANSI-Medicaid [id number] ANSI-Medicaid [id number] ANSI-Medicaid [id number] ANSI-Medicaid [id number] ANSI-Medicaid [id number] ANSI-Medicaid [id number] ANSI-Medicaid [id number] ANSI-Medicaid [id number] ANSI-Medicaid [id number] ANSI-Medicaid [id number] ANSI-Medicaid [id number] ANSI-Medicaid [id number] ANSI-Medicaid [id number] ANSI-Medicaid [id number] ANSI-Medicaid [id number] ANSI-Medicaid [id number] ANSI-Medicaid [id number] ANSI-Medicaid [id number] ANSI-Medicaid [id number] ANSI-Medicaid [id number] [facility] OFFICE OF MENTAL HEALTH C#[id number] S C#[id number] C#[id number] S C#[id number] ANSI-Medicaid [id number] ANSI-Medicaid [id number] ANSI-Medicaid [id number] ANSI-Medicaid [id number] ANSI-Medicaid [id number] ANSI-Medicaid [id number] ANSI-Medicaid [id number] ANSI-Medicaid [id number] ANSI-Medicaid [id number] ANSI-Medicaid [id number] ANSI-Medicaid [id number] ANSI-Medicaid [id number] ANSI-Medicaid [id number] ANSI-Medicaid [id number] ANSI-Medicaid [id number] ANSI-Medicaid [id number] ANSI-Medicaid [id number] ANSI-Medicaid [id number] ANSI-Medicaid [id number] ANSI-Medicaid [id number] ANSI-Medicaid [id number] ANSI-Medicaid [id number] ANSI-Medicaid [id number] SELF PAY ONLY [id number] SP [id number] [employer]HC COMMUNITY PLAN [facility] [id number] SP [id number] [facility](MCA[facility]) O [id number] S [id number] UNHC AMERICHOICE XIX HMO [id number] 18 [id number] Self Pay P [id number] S [id number] Managed Care - Community Plan [facility] P [id number] S [id number] [employer] COMMUNITY PLAN [facility] [id number] SP [id number] UNHC COMMUNITY PLAN [facility] [id number] SP [id number] SELF PAY UNAVAILABLE SP UNAVAILA BLE SELF PAY ONLY [id number] SP [id number] Medicaid [place] Medigap Part B [id number] Self AMERICHOICE UN[employer] XIX [facility] [id number] BLUE CROSS VALENCIA PLAN [id number] SP [id number] Managed Care - Community Plan [facility] P UNAVAILABLE S UNAVAILABLE D [facility] O [id number] S [id number] Medicaid Dental O [id number] S [id number] Self Pay P UNAVAILABLE S UNAVAILA BLE MEDICAID -O/P EMERGENCY ROOM [id number] BLUE CROSS BLUE SHIELD-O/P [id number] BLUE CROSS BLUE SHIELD-PHYSICIAN [id number] [facility] MEDICAID [id number] SP [id number] [facility] [id number] SP [id number] UN COMMUNITY PLAN [facility] [id number] SP [id number] [facility] [id number] SP [id number] [facility] [id number] SP [id number] Medicaid P [id number] S [id number] MEDICAID [id number] SP [id number] UN COMMUNITY PLAN [facility] [id number] SP [id number] MEDICAID [id number] SP [id number] ANS-Medicaid [id number] ANS-Medicaid [id number] ANS-Medicaid [id number] Problems, Conditions, and Diagnoses Code Display Name Description Problem Type Effective Dates Data Source(s) J30.1 [id number] Seasonal allergic rhinitis due to pollen Problem 12/17/2020 12:00:00 AM EDT eCW1 ([facility]) Surgeries/Procedures No Information Results ID Date Data Source [id number] 02/04/2021 01:44:00 AM EST [facility] Name Value Range Interpretation Code Description Data Pau rce(s) Supporting Document(s) RAPID STREP NEGATIVE NORMAL: NEGATIVE [facility] RAPID STREP REENTER NEGATIVE NORMAL: NEGATIVE [facility] { PROCEDURAL CONTROL VALID ){ KIT LOT # [id number] ){ KIT EXP DATE 04-25-22 )The Strep A 2 assay utilizes isothermal nucleic acid amplification technology fothe qualitative detection of Group A Strep bacterial nucleic acid in throat swabspecimens.All negative test results no longer need to be confirmed with a culture. Follow-up testing requiring a culture is necessary if clinical symptoms persist, or inthe event of an acute rheumatic fever outbreak. A culture will need to beordered by the Qualified Medical Provider.Negative results do not preclude infection with Group A Strep and should not beused as the sole basis for treatment. ID Date Data Source [id number] 11/26/2020 07:34:00 AM EDT [facility] Name Value Range Interpretation Code Description Data Pau rce(s) Supporting Document(s) SARS-CoV-2 (COVID-19) RNA [Presence] in Respiratory specimen by DORIE with probe detection Not Detected [facility] This lab was ordered by [facility] and reported by [facility] ID Date Data Source [id number] 10/03/2020 06:00:00 AM EDT [facility] Name Value Range Interpretation Code Description Data Pau rce(s) Supporting Document(s) SARS-CoV-2 (COVID-19) RNA [Presence] in Respiratory specimen by DORIE with probe detection Not Detected [facility] This lab was ordered by [facility] and reported by [facility] ID Date Data Source [id number] 09/13/2020 01:40:00 PM EDT [facility] Name: LARON STROUD JR DIN: [id number] Facility: [facility] : 1965 Physician: Felice Nye MD Date of Service: 09/11/20 EXAM: CHEST The lungs, mediastinum and chest wall are unremarkable. cc: Dictation Date/Time: 09/12/20 1805 <Electronically signed by Komal King MD> Transcribed Date/Time: 09/13/20 1340 09/13/20 1413 [employer] Grinder: [email or web address] Name Value Range Interpretation Code Description Data Pau rce(s) Supporting Document(s) ID Date Data Source [id number] 09/05/2020 07:54:00 AM EDT [facility] Name Value Range Interpretation Code Description Data Pau rce(s) Supporting Document(s) SARS-CoV-2 (COVID-19) RNA [Presence] in Respiratory specimen by DORIE with probe detection Not Detected [facility] This lab was ordered by [facility] and reported by [facility]. Procedure Social History Code Duration Value Status Description Data Source(s ) Smoking 12/17/2020 12:00:00 AM EDT Former Smoker completed Former Smoker eCW1 ([facility]) Smoking 12/17/2020 12:00:00 AM EDT Former Smoker completed Former Smoker eCW1 ([facility]) Smoking 12/17/2020 12:00:00 AM EDT Former Smoker completed Former Smoker eCW1 ([facility]) Smoking 12/17/2020 12:00:00 AM EDT Former Smoker completed Former Smoker eCW1 ([facility]) Smoking 12/17/2020 12:00:00 AM EDT Former Smoker completed Former Smoker eCW1 ([facility]) Smoking 12/17/2020 12:00:00 AM EDT Former Smoker completed Former Smoker eCW1 ([facility]) Smoking 12/17/2020 12:00:00 AM EDT Former Smoker completed Former Smoker eCW1 ([facility]) Smoking 12/17/2020 12:00:00 AM EDT Former Smoker completed Former Smoker eCW1 ([facility]) Smoking 12/17/2020 12:00:00 AM EDT Former Smoker completed Former Smoker eCW1 ([facility]) Smoking 12/17/2020 12:00:00 AM EDT Former Smoker completed Former Smoker eCW1 ([facility]) Smoking 12/17/2020 12:00:00 AM EDT Former Smoker completed Former Smoker eCW1 ([facility]) Smoking 02/07/2020 12:00:00 AM EST Former Smoker completed Former Smoker eCW1 ([facility]) Smoking 02/07/2020 12:00:00 AM EST Former Smoker completed Former Smoker eCW1 ([facility]) Vital Signs ID Date Data Source UNK Name Value Range Interpretation Code Description Data Source(s) Body weight 178.2 [lb_av] 178.2 [lb_av] eCW1 ([facility]) Body weight 80.83 kg 80.83 kg eCW1 ([facility]) Body height 72.5 [in_i] 72.5 [in_i] eCW1 ([facility]) Body mass index (BMI) [Ratio] 23.83 kg/m2 23.83 kg/m2 W1 ([facility]) Heart rate 64 /min 64 /min eCW1 ([facility]) Respiratory rate 18 /min 18 /min eCW1 ([facility]) Body temperature 99.2 [degF] 99.2 [degF] eCW1 ( [facility]) Systolic blood pressure 118 mm[Hg] 118 mm[Hg] e CW1 ([facility]) Diastolic blood pressure 76 mm[Hg] 76 mm[Hg] eCW1 ([facility]) Systolic blood pressure 146 mm[Hg] 146 mm[Hg] M EDENT ([facility]) Diastolic blood pressure 74 mm[Hg] 74 mm[Hg] MEDENT ([facility]) Heart rate 69 /min 69 /min MEDENT ([facility]) Body weight 177.00 [lb_av] 177.00 [lb_av] MEDEN T ([facility]) Systolic blood pressure 113 mm[Hg] 113 mm[Hg] M EDENT ([facility]) Diastolic blood pressure 66 mm[Hg] 66 mm[Hg] MEDENT ([facility]) Heart rate 73 /min 73 /min MEDENT ([facility]) Body temperature 98.0 [degF] 98.0 [degF] MEDENT ([facility]) Body weight 163.00 [lb_av] 163.00 [lb_av] MEDEN T ([facility]) Patient Treatment Plan of Care Planned Activity Planned Date Details Description Data Source (s) Acetaminophen 325 MG / Oxycodone Hydrochloride 5 MG Or al Tablet [Percocet] 01/23/2021 12:00:00 AM EDT eCW1 ([facility]) Acetaminophen 325 MG / Oxycodone Hydrochloride 5 MG Or al Tablet [Percocet] 01/23/2021 12:00:00 AM EDT eCW1 ([facility]) Acetaminophen 325 MG / Oxycodone Hydrochloride 5 MG Or al Tablet [Percocet] 01/23/2021 12:00:00 AM EDT eCW1 ([facility]) Acetaminophen 325 MG / Oxycodone Hydrochloride 5 MG Or al Tablet [Percocet] 01/14/2021 12:00:00 AM EDT eCW1 ([facility]) Acetaminophen 325 MG / Oxycodone Hydrochloride 5 MG Or al Tablet [Percocet] 01/14/2021 12:00:00 AM EDT eCW1 ([facility]) Acetaminophen 325 MG / Oxycodone Hydrochloride 5 MG Or al Tablet [Percocet] 01/14/2021 12:00:00 AM EDT eCW1 ([facility]) Acetaminophen 325 MG / Oxycodone Hydrochloride 5 MG Or al Tablet [Percocet] 01/14/2021 12:00:00 AM EDT eCW1 ([facility]) Acetaminophen 325 MG / Oxycodone Hydrochloride 5 MG Or al Tablet [Percocet] 12/23/2020 12:00:00 AM EDT eCW1 ([facility]) Acetaminophen 325 MG / Oxycodone Hydrochloride 5 MG Or al Tablet [Percocet] 12/23/2020 12:00:00 AM EDT eCW1 ([facility]) Acetaminophen 325 MG / Oxycodone Hydrochloride 5 MG Or al Tablet [Percocet] 12/23/2020 12:00:00 AM EDT eCW1 ([facility]) Loratadine 10 MG Oral Tablet 12/17/2020 12:00:00 AM EDT eCW1 ([facility]) Loratadine 10 MG Oral Tablet 12/17/2020 12:00:00 AM EDT eCW1 ([facility]) Loratadine 10 MG Oral Tablet 12/17/2020 12:00:00 AM EDT eCW1 ([facility]) Loratadine 10 MG Oral Tablet 12/17/2020 12:00:00 AM EDT eCW1 ([facility]) Loratadine 10 MG Oral Tablet 12/17/2020 12:00:00 AM EDT eCW1 ([facility]) Loratadine 10 MG Oral Tablet 12/17/2020 12:00:00 AM EDT eCW1 ([facility]) Loratadine 10 MG Oral Tablet 12/17/2020 12:00:00 AM EDT eCW1 ([facility]) Loratadine 10 MG Oral Tablet 12/17/2020 12:00:00 AM EDT eCW1 ([facility]) Loratadine 10 MG Oral Tablet 12/17/2020 12:00:00 AM EDT eCW1 ([facility]) Loratadine 10 MG Oral Tablet 12/17/2020 12:00:00 AM EDT eCW1 ([facility]) Acetaminophen 325 MG / Oxycodone Hydrochloride 5 MG Or al Tablet [Percocet] 12/17/2020 12:00:00 AM EDT eCW1 ([facility]) Loratadine 10 MG Oral Tablet 12/17/2020 12:00:00 AM EDT eCW1 ([facility]) Acetaminophen 325 MG / Oxycodone Hydrochloride 5 MG Or al Tablet [Percocet] 12/05/2020 12:00:00 AM EDT eCW1 ([facility]) Acetaminophen 325 MG / Oxycodone Hydrochloride 5 MG Or al Tablet [Percocet] 01/22/2020 12:00:00 AM EDT eCW1 ([facility]) Acetaminophen 325 MG / Oxycodone Hydrochloride 5 MG Or al Tablet [Percocet] 01/22/2020 12:00:00 AM EDT eCW1 ([facility])
[2021-02-04] MEDS ORDERED: GABA800T4 PO ×2 (05:54→10:39)
[2021-02-04] MEDS ORDERED: OXYC1TAB23 PO (05:54)
[2021-02-04] MEDS ORDERED: NS 500 ML IV ONE ×2 (08:00→09:05)
[2021-02-04] MEDS ORDERED: ONDANSETRON 4MG/2ML VIAL IV ONE (08:00)
[2021-02-04 08:38] LABS: HEMOGLOBIN 12.3 g/dl (13.5-17.5); MEAN CORPUSCULAR HEMOGLOBIN 30.8 pg (27.0-33.0); MEAN CORPUSCULAR HGB CONC 33.2 g/dl (32.0-36.5); MEAN CORPUSCULAR VOLUME 92.7 fl (80.0-96.0); PLATELET COUNT, AUTOMATED 369 10^3/uL (150-450); RED BLOOD COUNT 3.99 10^6/uL (4.30-6.10); WHITE BLOOD COUNT 9.4 10^3/uL (4.0-10.0)
[2021-02-04 08:50] LABS: ALBUMIN 3.5 GM/DL (3.2-5.2); BILIRUBIN,TOTAL 0.2 MG/DL (0.2-1.0); CALCIUM LEVEL 9.1 MG/DL (8.5-10.1); CREATININE FOR GFR 1.95 MG/DL (0.70-1.30); POTASSIUM SERUM 5.5 MEQ/L (3.5-5.1); TOTAL PROTEIN 7.4 GM/DL (6.4-8.2)
[2021-02-04] MEDS ORDERED: OMEPRAZOLE 20 MG CAP PO SCH (09:00)
[2021-02-04] MEDS: LIDOCAINE 5% (LIDODERM) PATCH TD SCH (09:00)
--- NOTE | 2021-02-04 09:18 | REP ---
INDICATION: dehydration. COMPARISON: None. TECHNIQUE: Portable upright AP (2 images) FINDINGS: Of the lung caballero are well inflated. CP angles are sharply defined without effusion. There is no lateral pleural thickening, apical scarring or pneumothorax. No dense consolidation or parenchymal mass. Heart size not grossly enlarged. Upper lobe vessels are somewhat engorged suggesting pulmonary venous hypertension, no estelle pulmonary edema. A few cuffed bronchi in the perihilar regions noted that might reflect reactive airway disease or bronchitis. No widening of the mediastinum, aortic aneurysm or asymmetry of the carlos. Bones without acute finding. IMPRESSION: 1. Pulmonary venous hypertension without pulmonary edema, cardiomegaly or definite effusion. 2. Some perihilar peribronchial thickening that may reflect reactive airway disease or bronchitis. 3. No parenchymal nodule, mass, acute infiltrate or other significant finding. <Electronically signed by Wale Fernandez > 02/04/21 0914
[2021-02-04 09:23] LABS: ATYPICAL LYMPH 1 % (0-5); BASOPHILS 1 % (0-1); LYMPHOCYTES 25 % (16-44); MONOCYTES 13 % (0-5); NEUTROPHILS 60 % (28-66); PLATELET ESTIMATE NORMAL (NORMAL)
[2021-02-04] MEDS ORDERED: NS 1,000 ML IV ONE (10:05)
[2021-02-04] MEDS ORDERED: OMEP-221 PO (10:39)
[2021-02-04] MEDS ORDERED: LISI40TA4 PO (10:39)
[2021-02-04] MEDS ORDERED: HOME MED LIST COMPLETE! XX SCH (10:45)
[2021-02-04] MEDS ORDERED: MOM 30ML SUSPENSION UDC PO PRN (11:20)
[2021-02-04] MEDS ORDERED: MAALOX 30 ML SUSP *UDC PO PRN (11:20)
[2021-02-04] MEDS ORDERED: ACETAMINOPHEN TAB 650MG DOSE (2X325MG) PO PRN (11:20)
--- OUTSIDE RECORDS SUMMARY | 2021-02-04 11:47 | CCD ---
Author Author [facility] Organization [facility] Address Unknown Phone Unavailable Care Team Providers Care Appliance Tester Name Role Phone TURRIN, CIRILO Unavailable Unavailable [...] is protected by Article 27-F of the [facility] Public Health law. If you continue you may have access to information: Regarding HIV / AIDS; Provided by facilities licensed or operated by the [facility] Office of Mental Health; or Provided by the [facility] Office for People With Developmental Disabilities. If such information is present, then the following [facility] mandated warning applies: This information has [...] law may result in a fine or alf sentence or both. A general authorization for the release of medical or other information is NOT sufficient authorization for further disc losure. Allergies and Adverse Reactions Type Description Substance Reaction Status Data Source(s ) No Known Drug Allergies No Known Drug Allergies [facility] Family History Family Member Name Family Member Gender Family Member Status Date o f Status Description Data Source(s) Unknown Female Problem [facility] ([facility] Encounters Encounter Providers Location Date Indications Data Source(s ) Emergency Attender: CIRILO Krausesultant: STAFF NON 02/04/2021 12:12:[address] [facility] Patient admitted. [place] [address] [facility] [place] [address] 01/28/2021 12:00:00 AM EDT eCW1 ([facility]) [place] [address] [facility] [place] [address] 01/23/2021 12:00:00 AM EDT eCW1 ([facility]) [place] [address] [facility] [place] [address] 01/21/2021 12:00:00 AM EDT eCW1 ([facility]) Unknown [address] [facility] [address] 01/20/2021 12:00:00 AM EDT eCW1 ([facility]) Unknown [address] [facility] [address] 01/14/2021 12:00:00 AM EDT eCW1 ([facility]) Unknown [address] [facility] [address] 01/10/2021 12:00:00 AM EDT eCW1 ([facility]) Unknown [address] [facility] [address] 01/08/2021 12:00:00 AM EDT eCW1 ([facility]) Unknown [address] [facility] [place] [address] 12/26/2020 12:00:00 AM EDT eCW1 ([facility]) Unknown [address] [facility] [place] [address] 12/19/2020 12:00:00 AM EDT eCW1 ([facility]) Outpatient [address] [facility] [address] 12/17/2020 12:00:00 AM EDT eCW1 ([facility]) Unknown [address] [facility] [place] [address] 12/16/2020 12:00:00 AM EDT eCW1 ([facility]) Unknown [address] [facility] [place] [address] 12/03/2020 12:00:00 AM EDT eCW1 ([facility]) Outpatient CPSCAORT-RADCOR 09/11/2020 01:07:00 PM EDT [id number] [facility] [id number] Unknown [address] [facility] [place] [address] 02/07/2020 12:00:00 AM EST eCW1 ([facility]) Unknown [address] [facility] [place] [address] 01/18/2020 12:00:00 AM EDT eCW1 ([facility]) Unknown [address] [facility] [address] 01/17/2020 12:00:00 AM EDT eCW1 ([facility]) Medications Medication Brand Name Start Date Product Form Dose Route Admi nistrative Instructions Pharmacy Instructions Status Indications Reaction Description Data Source(s) Acetaminophen 325 MG / Oxycodone Hydroch loride 5 MG Oral Tablet [Percocet] Percocet 5-325 MG Percocet 5-325 MG 01/23/2021 12:00:00 AM EDT 1 .0 {tablet_as_needed} active Percocet 5-32 5 MG eCW1 ([facility]) Acetaminophen 325 MG / Oxycodone Hydroch loride 5 MG Oral Tablet [Percocet] Percocet 5-325 MG Percocet 5-325 MG 01/23/2021 12:00:00 AM EDT 1 .0 {tablet_as_needed} active eCW1 ([facility]) Acetaminophen 325 MG / Oxycodone Hydroch loride 5 MG Oral Tablet [Percocet] Percocet 5-325 MG Percocet 5-325 MG 01/23/2021 12:00:00 AM EDT 1 .0 {tablet_as_needed} active Percocet 5-32 5 MG eCW1 ([facility]) Acetaminophen 325 MG / Oxycodone Hydroch loride 5 MG Oral Tablet [Percocet] Percocet 5-325 MG Percocet 5-325 MG 01/14/2021 12:00:00 AM EDT 1 .0 {tablet_as_needed} active Percocet 5-32 5 MG eCW1 ([facility]) Acetaminophen 325 MG / Oxycodone Hydroch loride 5 MG Oral Tablet [Percocet] Percocet 5-325 MG Percocet 5-325 MG 01/14/2021 12:00:00 AM EDT 1 .0 {tablet_as_needed} active Percocet 5-32 5 MG eCW1 ([facility]) Acetaminophen 325 MG / Oxycodone Hydroch loride 5 MG Oral Tablet [Percocet] Percocet 5-325 MG Percocet 5-325 MG 01/14/2021 12:00:00 AM EDT 1 .0 {tablet_as_needed} active Percocet 5-32 5 MG eCW1 ([facility]) Acetaminophen 325 MG / Oxycodone Hydroch loride 5 MG Oral Tablet [Percocet] Percocet 5-325 MG Percocet 5-325 MG 01/14/2021 12:00:00 AM EDT 1 .0 {tablet_as_needed} active Percocet 5-32 5 MG eCW1 ([facility]) Acetaminophen 325 MG / Oxycodone Hydroch loride 5 MG Oral Tablet [Percocet] Percocet 5-325 MG Percocet 5-325 MG 12/23/2020 12:00:00 AM EDT 1 .0 {tablet_as_needed} active Percocet 5-32 5 MG eCW1 ([facility]) Acetaminophen 325 MG / Oxycodone Hydroch loride 5 MG Oral Tablet [Percocet] Percocet 5-325 MG Percocet 5-325 MG 12/23/2020 12:00:00 AM EDT 1 .0 {tablet_as_needed} active Percocet 5-32 5 MG eCW1 ([facility]) Acetaminophen 325 MG / Oxycodone Hydroch loride 5 MG Oral Tablet [Percocet] Percocet 5-325 MG Percocet 5-325 MG 12/23/2020 12:00:00 AM EDT 1 .0 {tablet_as_needed} active Percocet 5-32 5 MG eCW1 ([facility]) Acetaminophen 325 MG / Oxycodone Hydroch loride 5 MG Oral Tablet [Percocet] Percocet 5-325 MG Percocet 5-325 MG 12/17/2020 12:00:00 AM EDT 1 .0 {tablet_as_needed} active Percocet 5-32 5 MG eCW1 ([facility]) Loratadine 10 MG Oral Tablet Loratadine 10 MG 12/17/2020 12:00:00 A M EDT 1.0 {tablet} active Loratadine 10 MG eCW1 ( [facility]) Loratadine 10 MG Oral Tablet Loratadine 10 MG 12/17/2020 12:00:00 A M EDT 1.0 {tablet} active Loratadine 10 MG eCW1 ( [facility]) Loratadine 10 MG Oral Tablet Loratadine 10 MG 12/17/2020 12:00:00 A M EDT 1.0 {tablet} active Loratadine 10 MG eCW1 ( [facility]) Loratadine 10 MG Oral Tablet Loratadine 10 MG 12/17/2020 12:00:00 A M EDT 1.0 {tablet} active Loratadine 10 MG eCW1 ( [facility]) Loratadine 10 MG Oral Tablet Loratadine 10 MG 12/17/2020 12:00:00 A M EDT 1.0 {tablet} active Loratadine 10 MG eCW1 ( [facility]) Loratadine 10 MG Oral Tablet Loratadine 10 MG 12/17/2020 12:00:00 A M EDT 1.0 {tablet} active Loratadine 10 MG eCW1 ( [facility]) Loratadine 10 MG Oral Tablet Loratadine 10 MG 12/17/2020 12:00:00 A M EDT 1.0 {tablet} active Loratadine 10 MG eCW1 ( [facility]) Loratadine 10 MG Oral Tablet Loratadine 10 MG 12/17/2020 12:00:00 A M EDT 1.0 {tablet} active eCW1 ([facility]) Loratadine 10 MG Oral Tablet Loratadine 10 MG 12/17/2020 12:00:00 A M EDT 1.0 {tablet} active Loratadine 10 MG eCW1 ( [facility]) Loratadine 10 MG Oral Tablet Loratadine 10 MG 12/17/2020 12:00:00 A M EDT 1.0 {tablet} active Loratadine 10 MG eCW1 ( [facility]) Loratadine 10 MG Oral Tablet Loratadine 10 MG 12/17/2020 12:00:00 A M EDT 1.0 {tablet} active Loratadine 10 MG eCW1 ( [facility]) Acetaminophen 325 MG / Oxycodone Hydroch loride 5 MG Oral Tablet [Percocet] Percocet 5-325 MG Percocet 5-325 MG 12/05/2020 12:00:00 AM EDT 1 .0 {tablet_as_needed} suspended Percocet 5- 325 MG eCW1 ([facility]) Acetaminophen 325 MG / Oxycodone Hydroch loride 5 MG Oral Tablet [Percocet] Percocet 5-325 MG Percocet 5-325 MG 12/05/2020 12:00:00 AM EDT 1 .0 {tablet_as_needed} suspended Percocet 5- 325 MG eCW1 ([facility]) Acetaminophen 325 MG / Oxycodone Hydroch loride 5 MG Oral Tablet [Percocet] Percocet 5-325 MG Percocet 5-325 MG 12/05/2020 12:00:00 AM EDT 1 .0 {tablet_as_needed} suspended Percocet 5- 325 MG eCW1 ([facility]) Acetaminophen 325 MG / Oxycodone Hydroch loride 5 MG Oral Tablet [Percocet] Percocet 5-325 MG Percocet 5-325 MG 12/05/2020 12:00:00 AM EDT 1 .0 {tablet_as_needed} active Percocet 5-32 5 MG eCW1 ([facility]) Acetaminophen 325 MG / Oxycodone Hydroch loride 5 MG Oral Tablet [Percocet] Percocet 5-325 MG Percocet 5-325 MG 12/05/2020 12:00:00 AM EDT 1 .0 {tablet_as_needed} suspended Percocet 5- 325 MG eCW1 ([facility]) Acetaminophen 325 MG / Oxycodone Hydroch loride 5 MG Oral Tablet [Percocet] Percocet 5-325 MG Percocet 5-325 MG 12/05/2020 12:00:00 AM EDT 1 .0 {tablet_as_needed} suspended Percocet 5- 325 MG eCW1 ([facility]) Acetaminophen 325 MG / Oxycodone Hydroch loride 5 MG Oral Tablet [Percocet] Percocet 5-325 MG Percocet 5-325 MG 12/05/2020 12:00:00 AM EDT 1 .0 {tablet_as_needed} suspended Percocet 5- 325 MG eCW1 ([facility]) Acetaminophen 325 MG / Oxycodone Hydroch loride 5 MG Oral Tablet [Percocet] Percocet 5-325 MG Percocet 5-325 MG 12/05/2020 12:00:00 AM EDT 1 .0 {tablet_as_needed} suspended Percocet 5- 325 MG eCW1 ([facility]) Acetaminophen 325 MG / Oxycodone Hydroch loride 5 MG Oral Tablet [Percocet] Percocet 5-325 MG Percocet 5-325 MG 12/05/2020 12:00:00 AM EDT 1 .0 {tablet_as_needed} suspended Percocet 5- 325 MG eCW1 ([facility]) Acetaminophen 325 MG / Oxycodone Hydroch loride 5 MG Oral Tablet [Percocet] Percocet 5-325 MG Percocet 5-325 MG 12/05/2020 12:00:00 AM EDT 1 .0 {tablet_as_needed} suspended eCW 1 ([facility]) Acetaminophen 325 MG / Oxycodone Hydroch loride 5 MG Oral Tablet [Percocet] Percocet 5-325 MG Percocet 5-325 MG 12/05/2020 12:00:00 AM EDT 1 .0 {tablet_as_needed} suspended Percocet 5- 325 MG eCW1 ([facility]) Acetaminophen 325 MG / Oxycodone Hydroch loride 5 MG Oral Tablet [Percocet] Percocet 5-325 MG Percocet 5-325 MG 12/05/2020 12:00:00 AM EDT 1 .0 {tablet_as_needed} suspended Percocet 5- 325 MG eCW1 ([facility]) Naproxen 500 MG Oral Tablet Naproxen 07/30/2020 12:00:00 AM EDT ORAL active [facility] Loratadine 10 MG Oral Capsule Loratadine 07/04/2020 12:00:00 AM EDT ORAL active [facility] ([facility]) Ibuprofen 800 MG Oral Tablet Ibuprofen 04/05/2020 12:00:00 AM EST ORAL active [facility] Amlodipine 5 MG Oral Tablet Amlodipine Besylate 01/25/2020 12:00:00 A M EDT ORAL active [facility]ENT ([facility]) Lisinopril 40 MG Oral Tablet Lisinopril 01/25/2020 12:00:00 AM EDT ORAL active [facility] Omeprazole 40 MG Delayed Release Oral Capsule Omeprazole 01/25/2020 12:00:00 AM EDT ORAL active MEDENT ([facility]) Acetaminophen 325 MG / Oxycodone Hydroch loride 5 MG Oral Tablet [Percocet] Percocet 5-325 MG Percocet 5-325 MG 01/22/2020 12:00:00 AM EDT 1 .0 {tablet_as_needed} active Percocet 5-32 5 MG eCW1 ([facility]) Acetaminophen 325 MG / Oxycodone Hydroch loride 5 MG Oral Tablet [Percocet] Percocet 5-325 MG Percocet 5-325 MG 01/22/2020 12:00:00 AM EDT 1 .0 {tablet_as_needed} active Percocet 5-32 5 MG eCW1 ([facility]) Acetaminophen 325 MG / Oxycodone Hydroch loride 5 MG Oral Tablet [Percocet] Percocet 5-325 MG Percocet 5-325 MG 01/22/2020 12:00:00 AM EDT 1 .0 {tablet_as_needed} active Percocet 5-32 5 MG eCW1 ([facility]) Acetaminophen 325 MG / Oxycodone Hydroch loride 5 MG Oral Tablet [Percocet] Percocet 5-325 MG Percocet 5-325 MG 01/22/2020 12:00:00 AM EDT 1 .0 {tablet_as_needed} active Percocet 5-32 5 MG eCW1 ([facility]) Insurance Providers Payer name Policy type / Coverage type Policy ID Covered constitution party ID Covered constitution party's relationship to king Policy King Plan Information [facility] Individual Policy [facility] [id number] S elf NYCDFHP [facility] Individual Policy [id number] S elf [place] Medicaid S [id number] S [id number] POMCO P [id number] S [id number] Medicaid S [id number] S [id number] Managed Care - Community Plan [facility] P [id number] S [id number] Managed Care - Community Plan [facility] P [id number] S [id number] Managed Care - Community Plan [facility] P [id number] S [id number] Medicaid S [id number] S [id number] [facility] [id number] [facility] [id number] Self [facility] o Commercial [id number] Self [id number] ANSI-Medicaid [id number] ANSI-Medicaid [id number] ANSI-Medicaid [id number] ANSI-Medicaid [id number] ANSI-Medicaid [id number] ANSI-Medicaid [id number] ANSI-Medicaid [id number] ANSI-Medicaid [id number] ANSI-Medicaid [id number] ANSI-Medicaid [id number] ANSI-Medicaid [id number] ANSI-Medicaid [id number] ANSI-Medicaid [id number] ANSI-Medicaid [id number] ANSI-Medicaid [id number] ANSI-Medicaid [id number] ANSI-Medicaid [id number] ANSI-Medicaid [id number] ANSI-Medicaid [id number] ANSI-Medicaid [id number] ANSI-Medicaid [id number] [facility] OFFICE OF MENTAL HEALTH C#[id number] S C#[id number] C#[id number] S C#[id number] ANSI-Medicaid [id number] ANSI-Medicaid [id number] ANSI-Medicaid [id number] ANSI-Medicaid [id number] ANSI-Medicaid [id number] ANSI-Medicaid [id number] ANSI-Medicaid [id number] ANSI-Medicaid [id number] ANSI-Medicaid [id number] ANSI-Medicaid [id number] ANSI-Medicaid [id number] ANSI-Medicaid [id number] ANSI-Medicaid [id number] ANSI-Medicaid [id number] ANSI-Medicaid [id number] ANSI-Medicaid [id number] ANSI-Medicaid [id number] ANSI-Medicaid [id number] ANSI-Medicaid [id number] ANSI-Medicaid [id number] ANSI-Medicaid [id number] ANSI-Medicaid [id number] ANSI-Medicaid [id number] SELF PAY ONLY [id number] SP [id number] [employer] COMMUNITY PLAN [facility] [id number] SP [id number] [facility]) O [id number] S [id number] UNHC AMERICHOICE XIX HMO [id number] 18 [id number] Self Pay P [id number] S [id number] Managed Care - Community Plan [facility] P [id number] S [id number] [facility] COMM[facility] PLAN [facility] [id number] SP [id number] [facility] COMMUN[facility] PLAN [facility] [id number] SP [id number] SELF PAY UNAVAILABLE SP UNAVAILA BLE SELF PAY ONLY [id number] SP [id number] Medicaid [place] Medigap Part B [id number] Self AMERICHOICE [employer] XIX [facility] [id number] BLUE CROSS VALENCIA PLAN [id number] SP [id number] Managed Care - Community Plan [facility] P UNAVAILABLE S UNAVAILABLE D [facility] O [id number] S [id number] Medicaid Dental O [id number] S [id number] Self Pay P UNAVAILABLE S UNAVAILA BLE MEDICAID -O/P EMERGENCY ROOM [id number] BLUE CROSS BLUE SHIELD-O/P [id number] BLUE CROSS BLUE SHIELD-PHYSICIAN [id number] [facility] MEDICAID [id number] SP [id number] X [id number] [facility] [id number] SP [id number] UN COMMUNITY PLAN [facility] [id number] SP [id number] [facility] COMMUNITY PLAN [facility] [id number] SP [id number] [facility] DEPT [id number] SP [id number] Medicaid P [id number] S [id number] MEDICAID [id number] SP [id number] UN COMMUNITY PLAN [facility] [id number] SP [id number] MEDICAID [id number] SP [id number] ANS-Medicaid [id number] ANS-Medicaid [id number] ANS-Medicaid [id number] Problems, Conditions, and Diagnoses Code Display Name Description Problem Type Effective Dates Data Source(s) J30.1 76579307 Seasonal allergic rhinitis due to pollen Problem 12/17/2020 12:00:00 AM EDT eCW1 ([facility]) Surgeries/Procedures No Information Results ID Date Data Source [id number] 02/04/2021 01:44:[address] [facility] Name Value Range Interpretation Code Description Data Pau rce(s) Supporting Document(s) RAPID STREP NEGATIVE NORMAL: NEGATIVE [facility] RAPID STREP REENTER NEGATIVE NORMAL: NEGATIVE [facility] { PROCEDURAL CONTROL VALID ){ KIT LOT # [id number] ){ KIT EXP DATE 04-25-22 )The Strep [...] basis for treatment. ID Date Data Source [id number] 11/26/2020 07:34:00 AM EDT [facility] Name Value Range Interpretation Code Description Data Pau rce(s) Supporting Document(s) SARS-CoV-2 (COVID-19) RNA [Presence] in Respiratory specimen by DORIE with probe detection Not Detected [facility] This lab was ordered by [employer] and reported by [employer] ID Date Data Source [id number] 10/03/2020 06:00:00 AM EDT [facility] Name Value Range Interpretation Code Description Data Pau rce(s) Supporting Document(s) SARS-CoV-2 (COVID-19) RNA [Presence] in Respiratory specimen by DORIE with probe detection Not Detected [facility] This lab was ordered by [employer] and reported by [employer] ID Date Data Source [id number] 09/13/2020 01:40:00 PM EDT [facility] Name: LARON STROUD JR DIN: [id number] Facility: [facility] : 1965 Physician: Felice Nye MD Date of Service: 09/11/20 EXAM: CHEST The lungs, mediastinum and chest wall are unremarkable. cc: Dictation Date/Time: 09/12/20 1805 <Electronically signed by Komal King MD> Transcribed Date/Time: 09/13/20 1340 09/13/20 1413 [employer] Technician: YULIANA Name Value Range Interpretation Code Description Data Pau rce(s) Supporting Document(s) ID Date Data Source [id number] 09/05/2020 07:54:00 AM EDT [facility] Name Value Range Interpretation Code Description Data Pau rce(s) Supporting Document(s) SARS-CoV-2 (COVID-19) RNA [Presence] in Respiratory specimen by DORIE with probe detection Not Detected [facility] This lab was ordered by [facility] [place] and reported by [employer]. Procedure Social History Code Duration Value Status Description Data Source(s ) Smoking 12/17/2020 12:00:00 AM EDT Former Smoker completed Former Smoker eCW1 ([facility]) Smoking 12/17/2020 12:00:00 AM EDT Former Smoker completed Former Smoker eCW1 ([facility]) Smoking 12/17/2020 12:00:00 AM EDT Former Smoker completed Former Smoker eCW1 ([facility]) Smoking 12/17/2020 12:00:00 AM EDT Former Smoker completed Former Smoker eCW1 ([facility]) Smoking 12/17/2020 12:00:00 AM EDT Former Smoker completed Former Smoker eCW1 ([facility]) Smoking 12/17/2020 12:00:00 AM EDT Former Smoker completed Former Smoker eCW1 ([facility]) Smoking 12/17/2020 12:00:00 AM EDT Former Smoker completed Former Smoker eCW1 ([facility]) Smoking 12/17/2020 12:00:00 AM EDT Former Smoker completed Former Smoker eCW1 ([facility]) Smoking 12/17/2020 12:00:00 AM EDT Former Smoker completed Former Smoker eCW1 ([facility]) Smoking 12/17/2020 12:00:00 AM EDT Former Smoker completed Former Smoker eCW1 ([facility]) Smoking 12/17/2020 12:00:00 AM EDT Former Smoker completed Former Smoker eCW1 ([facility]) Smoking 02/07/2020 12:00:00 AM EST Former Smoker completed Former Smoker eCW1 ([facility]) Smoking 02/07/2020 12:00:00 AM EST Former Smoker completed Former Smoker eCW1 ([facility]) Vital Signs ID Date Data Source UNK Name Value Range Interpretation Code Description Data Source(s) Body weight 178.2 [lb_av] 178.2 [lb_av] eCW1 ([facility]) Body weight 80.83 kg 80.83 kg eCW1 ([facility]) Body height 72.5 [in_i] 72.5 [in_i] eCW1 ([facility]) Body mass index (BMI) [Ratio] 23.83 kg/m2 23.83 kg/m2 W1 ([facility]) Heart rate 64 /min 64 /min eCW1 ([facility]) Respiratory rate 18 /min 18 /min eCW1 ([facility]) Body temperature 99.2 [degF] 99.2 [degF] eCW1 ( [facility]) Systolic blood pressure 118 mm[Hg] 118 mm[Hg] e CW1 ([facility]) Diastolic blood pressure 76 mm[Hg] 76 mm[Hg] eCW1 ([facility]) Systolic blood pressure 146 mm[Hg] 146 mm[Hg] M EDENT ([facility]) Diastolic blood pressure 74 mm[Hg] 74 mm[Hg] MEDENT ([facility]) Heart rate 69 /min 69 /min MEDENT ([facility]) Body weight 177.00 [lb_av] 177.00 [lb_av] MEDEN T ([facility]) Systolic blood pressure 113 mm[Hg] 113 mm[Hg] M EDENT ([facility]) Diastolic blood pressure 66 mm[Hg] 66 mm[Hg] MEDENT ([facility]) Heart rate 73 /min 73 /min MEDENT ([facility]) Body temperature 98.0 [degF] 98.0 [degF] MEDENT ([facility]) Body weight 163.00 [lb_av] 163.00 [lb_av] MEDEN T ([facility]) Patient Treatment Plan of Care Planned Activity Planned Date Details Description Data Source (s) Acetaminophen 325 MG / Oxycodone Hydrochloride 5 MG Or al Tablet [Percocet] 01/23/2021 12:00:00 AM EDT eCW1 ([facility]) Acetaminophen 325 MG / Oxycodone Hydrochloride 5 MG Or al Tablet [Percocet] 01/23/2021 12:00:00 AM EDT eCW1 (Formerly [facility]) Acetaminophen 325 MG / Oxycodone Hydrochloride 5 MG Or al Tablet [Percocet] 01/23/2021 12:00:00 AM EDT eCW1 (Formerly [facility]) Acetaminophen 325 MG / Oxycodone Hydrochloride 5 MG Or al Tablet [Percocet] 01/14/2021 12:00:00 AM EDT eCW1 (Formerly [facility]) Acetaminophen 325 MG / Oxycodone Hydrochloride 5 MG Or al Tablet [Percocet] 01/14/2021 12:00:00 AM EDT eCW1 (Formerly [facility]) Acetaminophen 325 MG / Oxycodone Hydrochloride 5 MG Or al Tablet [Percocet] 01/14/2021 12:00:00 AM EDT eCW1 (Formerly [facility]) Acetaminophen 325 MG / Oxycodone Hydrochloride 5 MG Or al Tablet [Percocet] 01/14/2021 12:00:00 AM EDT eCW1 (Formerly [facility]) Acetaminophen 325 MG / Oxycodone Hydrochloride 5 MG Or al Tablet [Percocet] 12/23/2020 12:00:00 AM EDT eCW1 (Formerly [facility]) Acetaminophen 325 MG / Oxycodone Hydrochloride 5 MG Or al Tablet [Percocet] 12/23/2020 12:00:00 AM EDT eCW1 (Formerly [facility]) Acetaminophen 325 MG / Oxycodone Hydrochloride 5 MG Or al Tablet [Percocet] 12/23/2020 12:00:00 AM EDT eCW1 (Formerly [facility]) Loratadine 10 MG Oral Tablet 12/17/2020 12:00:00 AM EDT eCW1 ([facility]) Loratadine 10 MG Oral Tablet 12/17/2020 12:00:00 AM EDT eCW1 ([facility]) Loratadine 10 MG Oral Tablet 12/17/2020 12:00:00 AM EDT eCW1 ([facility]) Loratadine 10 MG Oral Tablet 12/17/2020 12:00:00 AM EDT eCW1 ([facility]) Loratadine 10 MG Oral Tablet 12/17/2020 12:00:00 AM EDT eCW1 ([facility]) Loratadine 10 MG Oral Tablet 12/17/2020 12:00:00 AM EDT eCW1 ([facility]) Loratadine 10 MG Oral Tablet 12/17/2020 12:00:00 AM EDT eCW1 ([facility]) Loratadine 10 MG Oral Tablet 12/17/2020 12:00:00 AM EDT eCW1 ([facility]) Loratadine 10 MG Oral Tablet 12/17/2020 12:00:00 AM EDT eCW1 ([facility]) Loratadine 10 MG Oral Tablet 12/17/2020 12:00:00 AM EDT eCW1 ([facility]) Acetaminophen 325 MG / Oxycodone Hydrochloride 5 MG Or al Tablet [Percocet] 12/17/2020 12:00:00 AM EDT eCW1 (Formerly [facility]) Loratadine 10 MG Oral Tablet 12/17/2020 12:00:00 AM EDT eCW1 ([facility]) Acetaminophen 325 MG / Oxycodone Hydrochloride 5 MG Or al Tablet [Percocet] 12/05/2020 12:00:00 AM EDT eCW1 (Formerly [facility]) Acetaminophen 325 MG / Oxycodone Hydrochloride 5 MG Or al Tablet [Percocet] 01/22/2020 12:00:00 AM EDT eCW1 (Formerly [facility]) Acetaminophen 325 MG / Oxycodone Hydrochloride 5 MG Or al Tablet [Percocet] 01/22/2020 12:00:00 AM EDT eCW1 (Formerly [facility])
[2021-02-04 11:48] LABS: APPEARANCE, URINE CLEAR (CLEAR); BACTERIA, URINE AUTO NEGATIVE (NEGATIVE); BILIRUBIN, URINE AUTO NEGATIVE (NEGATIVE); BLOOD, URINE BLOOD NEGATIVE (NEGATIVE); COLOR, URINE COLORLESS (YELLOW); GLUCOSE, URINE (UA) AUTO NEGATIVE (NEGATIVE); KETONE, URINE AUTO NEGATIVE (NEGATIVE); LEUKOCYTE ESTERASE, URINE AUTO NEGATIVE (NEGATIVE); NITRITE, URINE AUTO NEGATIVE (NEGATIVE); PROTEIN, URINE AUTO NEGATIVE (NEGATIVE); RBC, URINE AUTO 0 /HPF (0-3); SPECIFIC GRAVITY URINE AUTO 1.005 (1.002-1.035); SQUAMOUS EPITHELIAL CELL UR AU 0 /HPF (0-6); UROBILINOGEN, URINE AUTO 0.2 mg/dL (0.0-2.0); WBC, URINE AUTO 0 /HPF (0-3)
--- NOTE | 2021-02-04 11:56 | HPEPDOC ---
[facility] Medical History & Physical Date of Admission Feb 04, 2021 (11:00) Date of Service: Feb 04, 2021 Attending Physician: RUY BOWMAN MD History and Physical CHIEF COMPLAINT: Cold and flu-like symptoms HISTORY OF PRESENT ILLNESS: Mr. Alexander is a 55 -[place] male who who presents with a 3 day history of cold and flu-like symptoms. Pt states he has chills, headaches, sore throat, green productive cough, nausea, vomiting, diffuse achy pain, decreased appetite and oral intake due to his nausea and vomiting. He state he does not know what his vomit has looked like. He states he has not been able to keep food down but is able to have some liquids. Denies diarrhea or abdominal pain. Patient states he was moved out of his hotel he was staying at and had no where else to go. Patient does not elaborate on symptoms and states he has back pain and would like his Percocet. Upon presentation to the ED, pt was found to have hyperkalemia of 5.5, an elevated BUN of 34 and Cr of 1.95. CXR showed no acute findings. Zofran and a liter of NS bolus was given. PAST MEDICAL HISTORY: 1. HTN. 2. GERD. 3. Chronic back pain. PAST SURGICAL HISTORY: Patient reports none. SOCIAL HISTORY: Resides in: Homeless Tobacco use: Current smoker of 3-4 cigarette a day for 1 year, denies prior heavy use. ETOH: Quit in 2017. Illicit drug use: Denies. IV drug use: Denies. Recently released from correctional facility 12/17/2020. FAMILY HISTORY: Patient reports none. ALLERGIES: Please see below. REVIEW OF SYSTEMS: CONSTITUTIONAL: Admits to chills and general malaise and achy pain. HEENT: Admits to dizziness, throbbing headaches, sore throat. CARDIOVASCULAR: Denies chest pain, palpitations. RESPIRATORY: Admits to green productive cough. Denies SOB, wheezing. GASTROINTESTINAL: Admits to nausea and vomiting. Denies abdominal pain, diarrhea, constipation. GENITOURINARY: Denies dysuria. SKIN: Denies rashes. MUSCULOSKELETAL: Admits to generalized weakness. States he has back pain. NEUROLOGICAL: Denies any numbness or tingling. HOME MEDICATIONS: Please see below. PHYSICAL EXAMINATION: VITAL SIGNS: Temperature 97.7, pulse 88, respiratory rate 20, blood pressure 129/86, pulse oximetry 98% on room air. GENERAL APPEARANCE: Pt laying in ED bed restless. No acute respiratory distress HEENT: Head NC and AT. EOMI. Sclera clear. No lymphadenopathy. CARDIOVASCULAR: RRR. normal S1 and S2. LUNGS: CTA b/l. No wheeze, rales, crackles. ABDOMEN: Soft, nontender, nondistended. No guarding, rebound. MUSCULOSKELETAL: Moves all four extremities EXTREMITIES: No edema or cyanosis. NEUROLOGICAL: No gross focal neurological defect noted. PSYCHIATRIC: Restless and agitated. LABORATORY DATA: See below. IMAGING: CXR 02/04 1. Pulmonary venous hypertension without pulmonary edema, cardiomegaly or definite effusion. 2. Some perihilar peribronchial thickening that may reflect reactive airway disease or bronchitis. 3. No parenchymal nodule, mass, acute infiltrate or other significant finding. EKG 02/04 No acute finding MICROBIOLOGY: Please see below. ASSESSMENT: Mr. Alexander is a 55 yo homeless male with a PMH of HTN and GERD who presents with chills and flu-like symptoms was found to have hyperkalemia and elevated BUN and Cr and was admitted for management of DARRION and URI. PLAN: # DARRION - KDIGO Stage 1 -suspect pre-renal etiology likely 2/2 decreased perfusion from decreased oral intake and vomiting -s/p 1L bolus NS, c/t IVF 100 mL/hr -UA pending -Will obtain spot urine Na and Cr to determine FENa # Hyperkalemia -K of 5.5 on admission, no treatment in the ED. Remains elevated on recheck after IV fluids given. -c/t IVF fluids as above -No overt EKG changes, c/t tele monitoring -ordered one dose of Kayexalate, recheck BMP after given # URI, likely viral etiology -Supportive care -Respiratory virus panel negative # Nausea -c/t Zofran PRN #GERD -hold home omeprazole in the setting of DARRION # HTN -hold home lisinopril in the setting of DARRION # Chronic back pain -c/t acetaminophen 650 mg PO daily PRN for mild pain -c/t home med Percocet 40 mg PO PRN for moderate to severe pain -c/t home gabapentin 300 mg PO TID, renally dosed -start lidocaine patch -Will obtain U tox screen pending # Tobacco abuse -Smoking cessation consult DVT PPx: Heparin 5,000 units subQ q8hr Diet: 2 gram sodium diet Activity: As tolerated Code: Full code Disposition: Home pending clinical improvement Vital Signs Vital Signs Date Time Temp Pulse Resp B/P (MAP) Pulse Ox O2 Delivery O2 Flow Rate FiO2 02/04/21 09:44 97.7 88 20 129/86 (100) 98 Room Air Laboratory Data Labs 24H Laboratory Tests 2 02/04/21 08:22: Neutrophils (%) (Auto) , Nucleated Red Blood Cells % (auto) 0.0, Neutrophils 60, Lymphocytes (Manual) 25, Monocytes (Manual) 13H, Basophils (Manual) 1, Atypical Lymphocytes 1, Red Blood Cell Morphology NORMAL, Anisocytosis , Platelet Estimate NORMAL, Anion Gap 6L, Glomerular Filtration Rate 46.0L, Calcium Level 9.1, Total Bilirubin 0.2, Aspartate Amino Transf (AST/SGOT) 23, Alanine Aminotransferase (ALT/SGPT) 22, Alkaline Phosphatase 74, Total Protein 7.4, Albumin 3.5, Albumin/Globulin Ratio 0.9, Lipase 244 CBC/BMP Laboratory Tests 02/04/21 08:22 Microbiology Microbiology 02/04/21 Respiratory Virus Panel (PCR) ([facility]) - Final, Complete Home Medications Scheduled Gabapentin (Gabapentin) 800 Mg Tablet, 800 MG PO TID Scheduled PRN Oxycodone HCl/Acetaminophen (Oxycodone-Acetaminophen 5-325) 1 Each Tablet, 1 TAB PO QIDP PRN for BACK PAIN Allergies Coded Allergies: No Known Allergies (Unverified , 10/06/16) A-FIB/CHADSVASC A-FIB History Current/History of A-Fib/PAF?: No GME ATTESTATION GME ATTESTATION My faculty preceptor for this patient encounter was physically present during the encounter and was fully available. All aspects of the patient interview, examination, medical decision making process, and medical care plan development were reviewed and approved by the faculty preceptor. The faculty preceptor is aware and concurs with the plan as stated in the body of this note and will attest to such by his/her cosignature. ATTENDING NOTE I, Ruy Bowman MD, have independently examined this patient and performed my own physical exam with the medical students and residents in the room with me, as well as reviewed the documentation and edited where necessary. I have discussed in detail with the resident and student the findings and plan of treatment as documented and edited their note. I agree with their findings and treatment plan and have edited their documentation. KAT YEBOAH OMS-4 Feb 04, 2021 11:56 MACRINA BECKETT D.O. Feb 04, 2021 15:27 RUY BOWMAN MD Feb 07, 2021 15:02
[2021-02-04 12:09] LABS: CALCIUM LEVEL 9.2 MG/DL (8.5-10.1); CREATININE FOR GFR 1.77 MG/DL (0.70-1.30); GLOMERULAR FILTRATION RATE 51.4 (>56); MAGNESIUM LEVEL 2.4 MG/DL (1.8-2.4); POTASSIUM SERUM 5.5 MEQ/L (3.5-5.1)
[2021-02-04 12:58] LABS: AMPHETAMINES LEVEL URINE POSITIVE (NEGATIVE); BARBITURATES URINE NEGATIVE (NEGATIVE); BENZODIAZEPINES URINE NEGATIVE (NEGATIVE); CANNABINOIDS URINE POSITIVE (NEGATIVE); COCAINE METABOLITE URINE NEGATIVE (NEGATIVE); METHADONE URINE NEGATIVE (NEGATIVE); OPIATES URINE NEGATIVE (NEGATIVE); PHENCYCLIDINE URINE NEGATIVE (NEGATIVE)
[2021-02-04] MEDS ORDERED: SOD POLYSTYRENE SULFONATE SUSP 15 GM/60 ML UD PO ONE (13:35)
[2021-02-04 15:05] VITALS: BP 125/75
[2021-02-04] MEDS: GABAPENTIN 300 MG CAP PO SCH ×3 (15:31→20:47)
[2021-02-04] MEDS: PERCOCET 5MG/325MG TAB PO PRN ×2 (15:32→21:35)
[2021-02-04] MEDS ORDERED: CALCIUM GLUCONATE 1,000 MG in D5W MINI-BAG PLUS 100 ML IV ONE (17:00)
[2021-02-04 18:37] LABS: CALCIUM LEVEL 9.1 MG/DL (8.5-10.1); CREATININE FOR GFR 1.58 MG/DL (0.70-1.30); GLOMERULAR FILTRATION RATE 58.6 (>56); POTASSIUM SERUM 4.8 MEQ/L (3.5-5.1)
--- NOTE | 2021-02-04 18:58 | REP ---
INDICATION: DARRION. COMPARISON: None. 0 09/11 TECHNIQUE: Real time imaging utilizing external transducer. FINDINGS: The right kidney measures 10.4 x 6.2 x 4.3 cm and the left 12.1 x 4.3 x 5.2 cm and both are sonographically normal. The urinary bladder was empty. IMPRESSION: Unremarkable bilateral renal ultrasound. <Electronically signed by Santos Cash > 02/04/21 [id number]
--- NOTE | 2021-02-04 19:29 | ECGEPIP ---
[facility] - ED Test Date: 2021-02-04 Pat Name: LARON STROUD Department: Room: - Gender: Male [employer]: : 1965 Requested By: Laron Velasquez Order Number: [id number] Reading MD: Rocio Ayers Measurements Intervals [place] Rate: 68 P: 78 AK: 134 QRS: 70 QRSD: 88 T: 59 QT: 390 QTc: 414 Interpretive Statements Normal sinus rhythm short AK interval Septal infarct , age undetermined Nonspecific ST T wave changes No prior ECG for comparison Electronically Signed on 02-04-2021 19:29:35 EST by Rocio Ayers
[2021-02-04 20:43] LABS: CALCIUM LEVEL 8.8 MG/DL (8.5-10.1); CREATININE FOR GFR 1.56 MG/DL (0.70-1.30); GLOMERULAR FILTRATION RATE 59.5 (>56); POTASSIUM SERUM 4.8 MEQ/L (3.5-5.1)
[2021-02-04] MEDS: HEPARIN SOD (PORCINE) 5000UNITS/ML 1ML VIAL/SYRINGE SC SCH (20:46)
[2021-02-04] MEDS ORDERED: **NOTE PATIENT COMMENT** MISC XX SCH (21:00)
[2021-02-04 22:00] VITALS: BP_SYST 124; BP_SYST 129; BP_SYST 135; BP_DIAS 66; BP_DIAS 72; BP_DIAS 74
[2021-02-05 02:00] VITALS: BP_SYST 126; BP_SYST 130; BP_SYST 132; BP_DIAS 60; BP_DIAS 72; BP_DIAS 74
[2021-02-05] MEDS: HEPARIN SOD (PORCINE) 5000UNITS/ML 1ML VIAL/SYRINGE SC SCH (05:00)
[2021-02-05 06:00] VITALS: BP_SYST 123; BP_SYST 137; BP_SYST 138; BP_DIAS 63; BP_DIAS 77; BP_DIAS 82
[2021-02-05] MEDS: LIDOCAINE 5% (LIDODERM) PATCH TD SCH (08:28)
[2021-02-05] MEDS: GABAPENTIN 300 MG CAP PO SCH (08:28)
[2021-02-05] MEDS: PERCOCET 5MG/325MG TAB PO PRN (08:28)
[2021-02-05 08:52] LABS: HEMATOCRIT 35.8 % (42.0-52.0); HEMOGLOBIN 11.7 g/dl (13.5-17.5); MEAN CORPUSCULAR HEMOGLOBIN 30.5 pg (27.0-33.0); MEAN CORPUSCULAR HGB CONC 32.7 g/dl (32.0-36.5); MEAN CORPUSCULAR VOLUME 93.2 fl (80.0-96.0); PLATELET COUNT, AUTOMATED 349 10^3/uL (150-450); RED BLOOD COUNT 3.84 10^6/uL (4.30-6.10); WHITE BLOOD COUNT 6.5 10^3/uL (4.0-10.0)
[2021-02-05] MEDS ORDERED: lisinopriL 40 MG TAB PO SCH (09:00)
[2021-02-05 09:13] LABS: BLOOD UREA NITROGEN 19 MG/DL (7-18); CARBON DIOXIDE LEVEL 24 MEQ/L (21-32); CHLORIDE LEVEL 109 MEQ/L (98-107); CREATININE FOR GFR 1.53 MG/DL (0.70-1.30); GLOMERULAR FILTRATION RATE > 60.0 (>56); GLUCOSE, FASTING 164 MG/DL (70-100); POTASSIUM SERUM 4.5 MEQ/L (3.5-5.1); SODIUM LEVEL 138 MEQ/L (136-145)
[2021-02-05 09:57] LABS: ATYPICAL LYMPH 7 % (0-5); EOSINOPHILS 2 % (0-3); LYMPHOCYTES 26 % (16-44); MONOCYTES 11 % (0-5); NEUTROPHILS 54 % (28-66)
[2021-02-05 09:58] LABS: HYPOCHROMASIA 1+; PLATELET ESTIMATE NORMAL (NORMAL)
--- NOTE | 2021-02-05 11:40 | DS.PDOC ---
Discharge Summary General Date of Admission Feb 04, 2021 at 05:45 Date of Discharge February 05, 2021 Attending Physician: DAYNA THOMPSON MD Discharge Summary PROCEDURES PERFORMED DURING STAY: None. ADMITTING DIAGNOSES: -DARRION -Hyperkalemia -URI -HTN -GERD -Chronic pain DISCHARGE DIAGNOSES: -DARRION on CKD3a -Hyperkalemia, resolved -URI, improved -HTN -GERD -Chronic pain COMPLICATIONS/CHIEF COMPLAINT: Darrion,Viral Upper Resp Illness. HISTORY OF PRESENT ILLNESS: Mr. Alexander is a 55 -[place] male who who presents on 02/04/2021 with a 3 day history of cold and flu-like symptoms. Pt states he has chills, headaches, sore throat, green productive cough, nausea, vomiting, diffuse achy pain, decreased appetite and oral intake due to his nausea and vomiting. He state he does not know what his vomit has looked like. He states he has not been able to keep food down but is able to have some liquids. Denies diarrhea or abdominal pain. Patient states he was moved out of his hotel he was staying at and had no where else to go. Patient does not elaborate on symptoms and states he has back pain and would like his Percocet. Upon presentation to the ED, pt was found to have hyperkalemia of 5.5, an elevated BUN of 34 and Cr of 1.95. CXR showed no acute findings. Zofran and a li ter of NS bolus was given. Pt is COVID negative and has not received the COVID vaccine. HOSPITAL COURSE: Repeat potassium showed hyperkalemia of 5.5 and calcium gluconate and Kayexalate was given and pt's potassium downtrended to 4.5. Pt was placed on tele monitor and showed no acute concerns and EKG showed no acute concerns. In regard's to the pt's DARRION, IVF was given and the Cr trended down to back to 1.53 which is around the pt's baseline of 1.45, pt's GFR improved from 46 to back to >60, and the pt was found to have a FeNa of 2.8% with renal US with no significant findings. Pt's URI symptoms improved requiring minimal supportive care. Of note, the pt has been filling his Percocet prescription; however, the urine tox screen was negative for opiates. Pt's oxycodone and oxymorphone levels are still pending. Pt is adamant about receiving his prescription Percocet pain medication and has refused other pain management options such as acetaminophen and lidocaine patches. [facility] is working with patient for longterm placement upon discharge. Pt is medically stable and does not require hospital level of care. DISCHARGE MEDICATIONS: Please see below. ALLERGIES: Please see below. PHYSICAL EXAMINATION ON DISCHARGE: VITAL SIGNS: Please see below. GENERAL: Pt laying comfortably in bed in NAD. HEENT: Head NC and AT. EOMI and PERRLA. Mucus membranes moist. NECK: No lymphadenopathy. Trachea midline. CARDIOVASCULAR EXAMINATION: RRR. S1S2. No m/r/g. RESPIRATORY EXAMINATION: CTA b/l. No wheezes, rales, rhonchi. ABDOMINAL EXAMINATION: Soft, nontender, nondistended. BS heard in all quadrants. No guarding, masses, rebound. EXTREMITIES: Full ROM in all extremities. Strength equal and 5/5 b/l. SKIN: No rashes, bruises, lesions, ulcers. Skin warm. NEUROLOGICAL EXAMINATION: No focal defects appreciated. PSYCHIATRIC EXAMINATION: Mood is anxious. LABORATORY DATA: Please see below. IMAGING: CXR 02/04 1. Pulmonary venous hypertension without pulmonary edema, cardiomegaly or definite effusion. 2. Some perihilar peribronchial thickening that may reflect reactive airway disease or bronchitis. 3. No parenchymal nodule, mass, acute infiltrate or other significant finding. EKG 02/04 No acute finding PROGNOSIS: Good ACTIVITY: As tolerated. DIET: Full diet DISCHARGE PLAN/DISPOSITION: 1. Blood pressures have been stable in 120's/60's throughout hospital course. Will be discontinuing home medication Lisinopril. Will need to follow up with PCP regarding blood pressure. 2. Pt's baseline Cr of 1.53 and GFR >60 qualifies for CKD3a. Given pt's FeNa of 2.8%, PTH intact of 48, negative renal US, and negative urine analysis for proteinuria, and hx of positive drug screen, the cause of pt's CKD3a would most likely be caused by the pt's drugs use. Further workup with definitive diagnosis would be needed outpatient. DISCHARGE INSTRUCTIONS: 1. Follow up with PCP in 7-10 days. 2. Take medications that were started or stopped as prescribed. 3. If symptoms worsen, please return to the hospital for reassessment. ITEMS TO FOLLOWUP ON ON OUTPATIENT: 1. Follow up with PCP regarding blood pressure given we have stopped your Lisinopril. Follow up with the work up of chronic kidney disease. DISCHARGE CONDITION: Stable. TIME SPENT ON DISCHARGE: 35 minutes. Vital Signs/I&Os Vital Signs Date Time Temp Pulse Resp B/P (MAP) Pulse Ox O2 Delivery O2 Flow Rate FiO2 02/05/21 08:28 18 02/05/21 06:00 65 123/63 (83) 67 138/77 (97) 74 137/82 (100) 02/05/21 06:00 98.6 99 Room Air I&O- Last 24 Hours up to 6 AM 02/05/21 06:00 Intake Total 2390 ml Output Total 1200 ml Balance 1190 ml Laboratory Data Labs 24H Laboratory Tests 2 02/04/21 11:35: Urine Color COLORLESS, Urine Appearance CLEAR, Urine pH 5.0, Urine Specific [facility] 1.005, Urine Protein NEGATIVE, Urine Glucose (Auto)(UA) NEGATIVE, Urine Ketones (Auto) NEGATIVE, Urine Blood NEGATIVE, Urine Nitrite NEGATIVE, Urine Bilirubin NEGATIVE, Urine Urobilinogen 0.2, Urine Leukocyte Esterase (Auto) NEGATIVE, Urine WBC (Auto) 0, Urine RBC (Auto) 0, Urine Hyaline Casts (Auto) 0, Urine Bacteria (Auto) NEGATIVE, Urine Squamous Epithelial Cells 0, Urine Sperm (Auto) , Urine Random Creatinine 32.0, Urine Random Sodium 69 02/04/21 11:36: Anion Gap 6L, Glomerular Filtration Rate 51.4L, Calcium Level 9.2, Magnesium Level 2.4, Urine Opiates Screen NEGATIVE, Urine Methadone Screen NEGATIVE, Urine Barbiturates Screen NEGATIVE, Urine Phencyclidine Screen NEGATIVE, Urine Amphetamines Screen POSITIVEH, Urine Benzodiazepines Screen NEGATIVE, Urine Cocaine Metabolite Screen NEGATIVE, Urine Cannabinoids Screen POSITIVEH 02/04/21 14:17: 02/04/21 18:01: Anion Gap 5L, Glomerular Filtration Rate 58.6, Calcium Level 9.1, Parathyroid Hormone (Intact) 48.0 02/04/21 20:14: Anion Gap 5L, Glomerular Filtration Rate 59.5, Calcium Level 8.8 CBC/BMP Laboratory Tests 02/04/21 11:36 02/04/21 18:01 02/04/21 20:14 Microbiology Microbiology 02/04/21 Respiratory Virus Panel (PCR) ([facility]) - Final, Complete Discharge Medications Scheduled Gabapentin (Gabapentin) 800 Mg Tablet, 800 MG PO TID, (Reported) Scheduled PRN Oxycodone HCl/Acetaminophen (Oxycodone-Acetaminophen 5-325) 1 Each Tablet, 1 TAB PO QIDP PRN for BACK PAIN, (Reported) Allergies Coded Allergies: No Known Allergies (Unverified , 10/06/16) KAT YEBOAH S-4 Feb 05, 2021 08:49
--- NOTE | 2021-02-05 11:53 | ECGEPIP ---
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 Order Number: [id number] Reading MD: Liss Mccarty Measurements Intervals [place] Rate: 64 P: 77 FL: 118 QRS: 66 QRSD: 86 T: 49 QT: 388 QTc: 400 Interpretive Statements Normal sinus rhythm with sinus arrhythmia Septal infarct , age undetermined BORDERLINE PEAKING OF T WAVE V3 LAE Electronically Signed on 02-05-2021 11:53:06 EST by Liss Mccarty
== END 2021-02-05 11:37 | disposition home or self-care (01) ==
LOC: M ED 05:44 → M ED INP 05:45 → ENRESERV 14:45 → M MSPAV 15:02
PROVIDERS: ADMIT Internal Medicine; ATTEND Internal Medicine
DX: N17.9 Acute kidney failure, unspecified (principal); N18.31 Chronic kidney disease, stage 3a; I12.9 Hypertensive chronic kidney disease with stage 1 through stage 4 chronic kidney disease, or unspecified chronic kidney disease; E87.5 Hyperkalemia; G89.29 Other chronic pain; J06.9 Acute upper respiratory infection, unspecified; K21.9 Gastro-esophageal reflux disease without esophagitis; Z79.899 Other long term (current) drug therapy
CPT/HCPCS: 36415; 71045; 76775; 80048; 80053; 80307; 81001; 82570; 83690; 83735; 83970; 84300; 85025; 87798; 93005; 96374; 96375; 96376; 99284; G0480; J0610; J2405

== ENCOUNTER 2021-02-05 16:50 | Emergency (ER) | payer OTHER ==
[~2021-02-05] VITALS: Ht 182.9 cm; Wt 83.6 kg
[2021-02-05 16:50] VITALS: BP 127/58
[~2021-02-05 16:50] MED LIST changes: +GABA800T4 PO; +OMEP-221 PO; +OXYC1TAB23 PO
--- OUTSIDE RECORDS SUMMARY | 2021-02-05 16:56 | CCD ---
Author Author [facility] Organization [facility] Address Unknown Phone Unavailable Care Team Providers Care Marketing Support Specialist Name Role Phone TURRIN, CIRILO Unavailable Unavailable [...] is protected by Article 27-F of the [facility] Public Health law. If you continue you may have access to information: Regarding HIV / AIDS; Provided by facilities licensed or operated by the [facility] Office of Mental Health; or Provided by the [facility] Office for People With Developmental Disabilities. If such information is present, then the following [facility] mandated warning applies: This information has [...] law may result in a fine or snf sentence or both. A general authorization for the release of medical or other information is NOT sufficient authorization for further disc losure. Allergies and Adverse Reactions Type Description Substance Reaction Status Data Source(s ) No Known Drug Allergies No Known Drug Allergies [facility] Family History Family Member Name Family Member Gender Family Member Status Date o f Status Description Data Source(s) Unknown Female Problem MEDENT ([facility] Encounters Encounter Providers Location Date Indications Data Source(s ) Emergency Attender: CIRILO Krausesultant: STAFF NON 02/04/2021 12:12:[address] [facility] Patient admitted. [place] [address] [facility] [place] [address] 01/28/2021 12:00:00 AM EDT eCW1 ([facility]) [place] [address] [facility] [place] [address] 01/23/2021 12:00:00 AM EDT eCW1 ([facility]) Unknown [address] [facility] [place] [address] 01/21/2021 12:00:00 AM EDT eCW1 ([facility]) [place] [address] [facility] [address] 01/20/2021 12:00:00 AM EDT eCW1 ([facility]) [place] [address] [facility] [address] 01/14/2021 12:00:00 AM EDT eCW1 ([facility]) Unknown [address] [facility] [address] 01/10/2021 12:00:00 AM EDT eCW1 ([facility]) Unknown [address] [facility] [address] 01/08/2021 12:00:00 AM EDT eCW1 ([facility]) Unknown [address] [facility] [address] 12/26/2020 12:00:00 AM EDT eCW1 ([facility]) Unknown [address] [facility] [address] 12/19/2020 12:00:00 AM EDT eCW1 ([facility]) Outpatient [address] [facility] [address] 12/17/2020 12:00:00 AM EDT eCW1 ([facility]) Unknown [address] [facility] [address] 12/16/2020 12:00:00 AM EDT eCW1 ([facility]) Unknown [address] [facility] [address] 12/03/2020 12:00:00 AM EDT eCW1 ([facility]) Outpatient CPSCAORT-RADCOR 09/11/2020 01:07:00 PM EDT [id number] [address] [facility] [id number] Unknown [address] [facility] [address] 02/07/2020 12:00:00 AM EST eCW1 ([facility]) Unknown [address] [facility] [address] 01/18/2020 12:00:00 AM EDT eCW1 ([facility]) Unknown [address] [facility] [address] 01/17/2020 12:00:00 AM EDT eCW1 ([facility]) Medications Medication Brand Name Start Date Product Form Dose Route Admi nistrative Instructions Pharmacy Instructions Status Indications Reaction Description Data Source(s) Acetaminophen 325 MG / Oxycodone Hydroch loride 5 MG Oral Tablet [Percocet] Percocet 5-325 MG Percocet 5-325 MG 01/23/2021 12:00:00 AM EDT 1 .0 {tablet_as_needed} active Percocet 5-32 5 MG eCW1 ([facility]) Acetaminophen 325 MG / Oxycodone Hydroch loride 5 MG Oral Tablet [Percocet] Percocet 5-325 MG Percocet 5-325 MG 01/23/2021 12:00:00 AM EDT 1 .0 {tablet_as_needed} active eCW1 ([facility]) Acetaminophen 325 MG / Oxycodone Hydroch loride 5 MG Oral Tablet [Percocet] Percocet 5-325 MG Percocet 5-325 MG 01/23/2021 12:00:00 AM EDT 1 .0 {tablet_as_needed} active Percocet 5-32 5 MG eCW1 ([facility]) Acetaminophen 325 MG / Oxycodone Hydroch loride 5 MG Oral Tablet [Percocet] Percocet 5-325 MG Percocet 5-325 MG 01/14/2021 12:00:00 AM EDT 1 .0 {tablet_as_needed} active Percocet 5-32 5 MG eCW1 ([facility]) Acetaminophen 325 MG / Oxycodone Hydroch loride 5 MG Oral Tablet [Percocet] Percocet 5-325 MG Percocet 5-325 MG 01/14/2021 12:00:00 AM EDT 1 .0 {tablet_as_needed} active Percocet 5-32 5 MG eCW1 ([facility]) Acetaminophen 325 MG / Oxycodone Hydroch loride 5 MG Oral Tablet [Percocet] Percocet 5-325 MG Percocet 5-325 MG 01/14/2021 12:00:00 AM EDT 1 .0 {tablet_as_needed} active Percocet 5-32 5 MG eCW1 ([facility]) Acetaminophen 325 MG / Oxycodone Hydroch loride 5 MG Oral Tablet [Percocet] Percocet 5-325 MG Percocet 5-325 MG 01/14/2021 12:00:00 AM EDT 1 .0 {tablet_as_needed} active Percocet 5-32 5 MG eCW1 ([facility]) Acetaminophen 325 MG / Oxycodone Hydroch loride 5 MG Oral Tablet [Percocet] Percocet 5-325 MG Percocet 5-325 MG 12/23/2020 12:00:00 AM EDT 1 .0 {tablet_as_needed} active Percocet 5-32 5 MG eCW1 ([facility]) Acetaminophen 325 MG / Oxycodone Hydroch loride 5 MG Oral Tablet [Percocet] Percocet 5-325 MG Percocet 5-325 MG 12/23/2020 12:00:00 AM EDT 1 .0 {tablet_as_needed} active Percocet 5-32 5 MG eCW1 ([facility]) Acetaminophen 325 MG / Oxycodone Hydroch loride 5 MG Oral Tablet [Percocet] Percocet 5-325 MG Percocet 5-325 MG 12/23/2020 12:00:00 AM EDT 1 .0 {tablet_as_needed} active Percocet 5-32 5 MG eCW1 ([facility]) Acetaminophen 325 MG / Oxycodone Hydroch loride 5 MG Oral Tablet [Percocet] Percocet 5-325 MG Percocet 5-325 MG 12/17/2020 12:00:00 AM EDT 1 .0 {tablet_as_needed} active Percocet 5-32 5 MG eCW1 ([facility]) Loratadine 10 MG Oral Tablet Loratadine 10 MG 12/17/2020 12:00:00 A M EDT 1.0 {tablet} active Loratadine 10 MG eCW1 ( [facility]) Loratadine 10 MG Oral Tablet Loratadine 10 MG 12/17/2020 12:00:00 A M EDT 1.0 {tablet} active Loratadine 10 MG eCW1 ( [facility]) Loratadine 10 MG Oral Tablet Loratadine 10 MG 12/17/2020 12:00:00 A M EDT 1.0 {tablet} active Loratadine 10 MG eCW1 ( [facility]) Loratadine 10 MG Oral Tablet Loratadine 10 MG 12/17/2020 12:00:00 A M EDT 1.0 {tablet} active Loratadine 10 MG eCW1 ( [facility]) Loratadine 10 MG Oral Tablet Loratadine 10 MG 12/17/2020 12:00:00 A M EDT 1.0 {tablet} active Loratadine 10 MG eCW1 ( [facility]) Loratadine 10 MG Oral Tablet Loratadine 10 MG 12/17/2020 12:00:00 A M EDT 1.0 {tablet} active Loratadine 10 MG eCW1 ( [facility]) Loratadine 10 MG Oral Tablet Loratadine 10 MG 12/17/2020 12:00:00 A M EDT 1.0 {tablet} active Loratadine 10 MG eCW1 ( [facility]) Loratadine 10 MG Oral Tablet Loratadine 10 MG 12/17/2020 12:00:00 A M EDT 1.0 {tablet} active eCW1 ([facility]) Loratadine 10 MG Oral Tablet Loratadine 10 MG 12/17/2020 12:00:00 A M EDT 1.0 {tablet} active Loratadine 10 MG eCW1 ( [facility]) Loratadine 10 MG Oral Tablet Loratadine 10 MG 12/17/2020 12:00:00 A M EDT 1.0 {tablet} active Loratadine 10 MG eCW1 ( [facility]) Loratadine 10 MG Oral Tablet Loratadine 10 MG 12/17/2020 12:00:00 A M EDT 1.0 {tablet} active Loratadine 10 MG eCW1 ( [facility]) Acetaminophen 325 MG / Oxycodone Hydroch loride 5 MG Oral Tablet [Percocet] Percocet 5-325 MG Percocet 5-325 MG 12/05/2020 12:00:00 AM EDT 1 .0 {tablet_as_needed} suspended Percocet 5- 325 MG eCW1 ([facility]) Acetaminophen 325 MG / Oxycodone Hydroch loride 5 MG Oral Tablet [Percocet] Percocet 5-325 MG Percocet 5-325 MG 12/05/2020 12:00:00 AM EDT 1 .0 {tablet_as_needed} suspended Percocet 5- 325 MG eCW1 ([facility]) Acetaminophen 325 MG / Oxycodone Hydroch loride 5 MG Oral Tablet [Percocet] Percocet 5-325 MG Percocet 5-325 MG 12/05/2020 12:00:00 AM EDT 1 .0 {tablet_as_needed} suspended Percocet 5- 325 MG eCW1 ([facility]) Acetaminophen 325 MG / Oxycodone Hydroch loride 5 MG Oral Tablet [Percocet] Percocet 5-325 MG Percocet 5-325 MG 12/05/2020 12:00:00 AM EDT 1 .0 {tablet_as_needed} active Percocet 5-32 5 MG eCW1 ([facility]) Acetaminophen 325 MG / Oxycodone Hydroch loride 5 MG Oral Tablet [Percocet] Percocet 5-325 MG Percocet 5-325 MG 12/05/2020 12:00:00 AM EDT 1 .0 {tablet_as_needed} suspended Percocet 5- 325 MG eCW1 ([facility]) Acetaminophen 325 MG / Oxycodone Hydroch loride 5 MG Oral Tablet [Percocet] Percocet 5-325 MG Percocet 5-325 MG 12/05/2020 12:00:00 AM EDT 1 .0 {tablet_as_needed} suspended Percocet 5- 325 MG eCW1 ([facility]) Acetaminophen 325 MG / Oxycodone Hydroch loride 5 MG Oral Tablet [Percocet] Percocet 5-325 MG Percocet 5-325 MG 12/05/2020 12:00:00 AM EDT 1 .0 {tablet_as_needed} suspended Percocet 5- 325 MG eCW1 ([facility]) Acetaminophen 325 MG / Oxycodone Hydroch loride 5 MG Oral Tablet [Percocet] Percocet 5-325 MG Percocet 5-325 MG 12/05/2020 12:00:00 AM EDT 1 .0 {tablet_as_needed} suspended Percocet 5- 325 MG eCW1 ([facility]) Acetaminophen 325 MG / Oxycodone Hydroch loride 5 MG Oral Tablet [Percocet] Percocet 5-325 MG Percocet 5-325 MG 12/05/2020 12:00:00 AM EDT 1 .0 {tablet_as_needed} suspended Percocet 5- 325 MG eCW1 ([facility]) Acetaminophen 325 MG / Oxycodone Hydroch loride 5 MG Oral Tablet [Percocet] Percocet 5-325 MG Percocet 5-325 MG 12/05/2020 12:00:00 AM EDT 1 .0 {tablet_as_needed} suspended eCW 1 ([facility]) Acetaminophen 325 MG / Oxycodone Hydroch loride 5 MG Oral Tablet [Percocet] Percocet 5-325 MG Percocet 5-325 MG 12/05/2020 12:00:00 AM EDT 1 .0 {tablet_as_needed} suspended Percocet 5- 325 MG eCW1 ([facility]) Acetaminophen 325 MG / Oxycodone Hydroch loride 5 MG Oral Tablet [Percocet] Percocet 5-325 MG Percocet 5-325 MG 12/05/2020 12:00:00 AM EDT 1 .0 {tablet_as_needed} suspended Percocet 5- 325 MG eCW1 ([facility]) Naproxen 500 MG Oral Tablet Naproxen 07/30/2020 12:00:00 AM EDT ORAL active MEDENT ([facility]) Loratadine 10 MG Oral Capsule Loratadine 07/04/2020 12:00:00 AM EDT ORAL active MEDENT ([facility]) Ibuprofen 800 MG Oral Tablet Ibuprofen 04/05/2020 12:00:00 AM EST ORAL active MEDENT ([facility]) Amlodipine 5 MG Oral Tablet Amlodipine Besylate 01/25/2020 12:00:00 A M EDT ORAL active MEDENT ([facility]) Lisinopril 40 MG Oral Tablet Lisinopril 01/25/2020 12:00:00 AM EDT ORAL active MEDENT ([facility]) Omeprazole 40 MG Delayed Release Oral Capsule Omeprazole 01/25/2020 12:00:00 AM EDT ORAL active MEDENT ([facility]) Acetaminophen 325 MG / Oxycodone Hydroch loride 5 MG Oral Tablet [Percocet] Percocet 5-325 MG Percocet 5-325 MG 01/22/2020 12:00:00 AM EDT 1 .0 {tablet_as_needed} active Percocet 5-32 5 MG eCW1 ([facility]) Acetaminophen 325 MG / Oxycodone Hydroch loride 5 MG Oral Tablet [Percocet] Percocet 5-325 MG Percocet 5-325 MG 01/22/2020 12:00:00 AM EDT 1 .0 {tablet_as_needed} active Percocet 5-32 5 MG eCW1 ([facility]) Acetaminophen 325 MG / Oxycodone Hydroch loride 5 MG Oral Tablet [Percocet] Percocet 5-325 MG Percocet 5-325 MG 01/22/2020 12:00:00 AM EDT 1 .0 {tablet_as_needed} active Percocet 5-32 5 MG eCW1 ([facility]) Acetaminophen 325 MG / Oxycodone Hydroch loride 5 MG Oral Tablet [Percocet] Percocet 5-325 MG Percocet 5-325 MG 01/22/2020 12:00:00 AM EDT 1 .0 {tablet_as_needed} active Percocet 5-32 5 MG eCW1 ([facility]) Insurance Providers Payer name Policy type / Coverage type Policy ID Covered green party ID Covered green party's relationship to king Policy King Plan Information [facility] [id number] S elf [place] [facility] Individual Policy [place] [id number] S elf [place] Medicaid S [id number] S [id number] POMCO P [id number] S [id number] Medicaid S [id number] S [id number] Managed Care - Community Plan [facility] P [id number] S [id number] Managed Care - Community Plan [facility] P [id number] S [id number] Managed Care - Community Plan [facility] P [id number] S [id number] Medicaid S [id number] S [id number] [facility] [id number] [id number] Self [facility] Care o Commercial [id number] Self [id number] ANSI-Medicaid [id number] ANSI-Medicaid [id number] ANSI-Medicaid [id number] ANSI-Medicaid [id number] ANSI-Medicaid [id number] ANSI-Medicaid [id number] ANSI-Medicaid [id number] ANSI-Medicaid [id number] ANSI-Medicaid [id number] ANSI-Medicaid [id number] ANSI-Medicaid [id number] ANSI-Medicaid [id number] ANSI-Medicaid [id number] ANSI-Medicaid [id number] ANSI-Medicaid [id number] ANSI-Medicaid [id number] ANSI-Medicaid [id number] ANSI-Medicaid [id number] ANSI-Medicaid [id number] ANSI-Medicaid [id number] ANSI-Medicaid [id number] [facility] OFFICE OF MENTAL HEALTH C#[id number] S C#[id number] OTHER1 C#[id number] S C#[id number] ANSI-Medicaid [id number] ANSI-Medicaid [id number] ANSI-Medicaid [id number] ANSI-Medicaid [id number] ANSI-Medicaid [id number] ANSI-Medicaid [id number] ANSI-Medicaid [id number] ANSI-Medicaid [id number] ANSI-Medicaid [id number] ANSI-Medicaid [id number] ANSI-Medicaid [id number] ANSI-Medicaid [id number] ANSI-Medicaid [id number] ANSI-Medicaid [id number] ANSI-Medicaid [id number] ANSI-Medicaid [id number] ANSI-Medicaid [id number] ANSI-Medicaid [id number] ANSI-Medicaid [id number] ANSI-Medicaid [id number] ANSI-Medicaid [id number] ANSI-Medicaid [id number] ANSI-Medicaid [id number] SELF PAY ONLY [id number] SP [id number] [employer] COMMUNITY PLAN [facility] [id number] SP [id number] [facility](MCAID) O [id number] S [id number] UNHC AMERICHOICE XIX HMO [id number] 18 [id number] Self Pay P [id number] S [id number] Managed Care - Community Plan [facility] P [id number] S [id number] [facility] COMMUNITY PLAN [facility] [id number] SP [id number] UN[facility] COMMUNITY PLAN [facility] [id number] SP [id number] SELF PAY UNAVAILABLE SP UNAVAILA BLE SELF PAY ONLY [id number] SP [id number] Medicaid [place] Medigap Part B [id number] Self AMERICHOICE UNHC XIX [facility] [id number] BLUE CROSS VALENC[place] PLAN [id number] SP [id number] Managed Care - Community Plan [facility] P UNAVAILABLE S UNAVAILABLE D [facility] O [id number] S [id number] Medicaid Dental O [id number] S [id number] Self Pay P UNAVAILABLE S UNAVAILA BLE MEDICAID -O/P EMERGENCY ROOM [id number] BLUE CROSS BLUE SHIELD-O/P [id number] BLUE CROSS BLUE SHIELD-PHYSICIAN [id number] [facility] MEDICAID [id number] SP [id number] [facility] [id number] SP [id number] UN COMMUNITY PLAN [facility] [id number] SP [id number] [facility] COMMUNITY PLAN [facility] [id number] SP [id number] [facility] DEPT [id number] SP [id number] Medicaid P [id number] S [id number] MEDICAID [id number] SP [id number] UN COMM[facility]ITY PL[place] [facility] [id number] SP [id number] MEDICAID [id number] SP [id number] ANS-Medicaid [id number] ANS-Medicaid [id number] ANS-Medicaid [id number] Problems, Conditions, and Diagnoses Code Display Name Description Problem Type Effective Dates Data Source(s) J30.1 22170269 Seasonal allergic rhinitis due to pollen Problem 12/17/2020 12:00:00 AM EDT eCW1 ([facility]) Surgeries/Procedures No Information Results ID Date Data Source [id number] 02/04/2021 01:44:[address] [facility] Name Value Range Interpretation Code Description Data Pau rce(s) Supporting Document(s) RAPID STREP NEGATIVE NORMAL: NEGATIVE [facility] RAPID STREP REENTER NEGATIVE NORMAL: NEGATIVE [facility] { PROCEDURAL CONTROL VALID ){ KIT LOT # [id number] ){ KIT EXP DATE 04-25-22 )The Strep [...] basis for treatment. ID Date Data Source [id number] 11/26/2020 07:34:00 AM EDT [facility] Name Value Range Interpretation Code Description Data Pau rce(s) Supporting Document(s) SARS-CoV-2 (COVID-19) RNA [Presence] in Respiratory specimen by DORIE with probe detection Not Detected [facility] This lab was ordered by [employer] and reported by [employer] ID Date Data Source [id number] 10/03/2020 06:00:00 AM EDT [facility] Name Value Range Interpretation Code Description Data Pau rce(s) Supporting Document(s) SARS-CoV-2 (COVID-19) RNA [Presence] in Respiratory specimen by DORIE with probe detection Not Detected [facility] This lab was ordered by [employer] and reported by [employer] ID Date Data Source [id number] 09/13/2020 01:40:00 PM EDT [facility] Name: LARON STROUD JR DIN: [id number] Facility: [facility] : 1965 Physician: Felice Nye MD Date of Service: 09/11/20 EXAM: CHEST The lungs, mediastinum and chest wall are unremarkable. cc: Dictation Date/Time: 09/12/20 1805 <Electronically signed by Komal King MD> Transcribed Date/Time: 09/13/20 1340 09/13/20 1413 [employer] Superintendent: YULIANA Name Value Range Interpretation Code Description Data Pau rce(s) Supporting Document(s) ID Date Data Source [id number] 09/05/2020 07:54:00 AM EDT [facility] Name Value Range Interpretation Code Description Data Pau rce(s) Supporting Document(s) SARS-CoV-2 (COVID-19) RNA [Presence] in Respiratory specimen by DORIE with probe detection Not Detected [facility] This lab was ordered by [facility] and reported by [employer]. Procedure Social History Code Duration Value Status Description Data Source(s ) Smoking 12/17/2020 12:00:00 AM EDT Former Smoker completed Former Smoker eCW1 ([facility]) Smoking 12/17/2020 12:00:00 AM EDT Former Smoker completed Former Smoker eCW1 ([facility]) Smoking 12/17/2020 12:00:00 AM EDT Former Smoker completed Former Smoker eCW1 ([facility]) Smoking 12/17/2020 12:00:00 AM EDT Former Smoker completed Former Smoker eCW1 ([facility]) Smoking 12/17/2020 12:00:00 AM EDT Former Smoker completed Former Smoker eCW1 ([facility]) Smoking 12/17/2020 12:00:00 AM EDT Former Smoker completed Former Smoker eCW1 ([facility]) Smoking 12/17/2020 12:00:00 AM EDT Former Smoker completed Former Smoker eCW1 ([facility]) Smoking 12/17/2020 12:00:00 AM EDT Former Smoker completed Former Smoker eCW1 ([facility]) Smoking 12/17/2020 12:00:00 AM EDT Former Smoker completed Former Smoker eCW1 ([facility]) Smoking 12/17/2020 12:00:00 AM EDT Former Smoker completed Former Smoker eCW1 ([facility]) Smoking 12/17/2020 12:00:00 AM EDT Former Smoker completed Former Smoker eCW1 ([facility]) Smoking 02/07/2020 12:00:00 AM EST Former Smoker completed Former Smoker eCW1 ([facility]) Smoking 02/07/2020 12:00:00 AM EST Former Smoker completed Former Smoker eCW1 ([facility]) Vital Signs ID Date Data Source UNK Name Value Range Interpretation Code Description Data Source(s) Body weight 178.2 [lb_av] 178.2 [lb_av] eCW1 ([facility]) Body weight 80.83 kg 80.83 kg eCW1 ([facility]) Body height 72.5 [in_i] 72.5 [in_i] eCW1 ([facility] Body mass index (BMI) [Ratio] 23.83 kg/m2 23.83 kg/m2 W1 ([facility]) Heart rate 64 /min 64 /min eCW1 ([facility]) Respiratory rate 18 /min 18 /min eCW1 ([facility]) Body temperature 99.2 [degF] 99.2 [degF] eCW1 ( [facility]) Systolic blood pressure 118 mm[Hg] 118 mm[Hg] e CW1 ([facility]) Diastolic blood pressure 76 mm[Hg] 76 mm[Hg] eCW1 ([facility]) Systolic blood pressure 146 mm[Hg] 146 mm[Hg] M EDENT ([facility]) Diastolic blood pressure 74 mm[Hg] 74 mm[Hg] MEDENT ([facility]) Heart rate 69 /min 69 /min MEDENT ([facility]) Body weight 177.00 [lb_av] 177.00 [lb_av] MEDEN T ([facility]) Systolic blood pressure 113 mm[Hg] 113 mm[Hg] M EDENT ([facility]) Diastolic blood pressure 66 mm[Hg] 66 mm[Hg] MEDENT ([facility]) Heart rate 73 /min 73 /min MEDENT ([facility]) Body temperature 98.0 [degF] 98.0 [degF] MEDENT ([facility]) Body weight 163.00 [lb_av] 163.00 [lb_av] MEDEN T ([facility]) Patient Treatment Plan of Care Planned Activity Planned Date Details Description Data Source (s) Acetaminophen 325 MG / Oxycodone Hydrochloride 5 MG Or al Tablet [Percocet] 01/23/2021 12:00:00 AM EDT eCW1 ([facility]) Acetaminophen 325 MG / Oxycodone Hydrochloride 5 MG Or al Tablet [Percocet] 01/23/2021 12:00:00 AM EDT eCW1 ([facility]) Acetaminophen 325 MG / Oxycodone Hydrochloride 5 MG Or al Tablet [Percocet] 01/23/2021 12:00:00 AM EDT eCW1 ([facility]) Acetaminophen 325 MG / Oxycodone Hydrochloride 5 MG Or al Tablet [Percocet] 01/14/2021 12:00:00 AM EDT eCW1 ([facility]) Acetaminophen 325 MG / Oxycodone Hydrochloride 5 MG Or al Tablet [Percocet] 01/14/2021 12:00:00 AM EDT eCW1 ([facility]) Acetaminophen 325 MG / Oxycodone Hydrochloride 5 MG Or al Tablet [Percocet] 01/14/2021 12:00:00 AM EDT eCW1 ([facility]) Acetaminophen 325 MG / Oxycodone Hydrochloride 5 MG Or al Tablet [Percocet] 01/14/2021 12:00:00 AM EDT eCW1 ([facility]) Acetaminophen 325 MG / Oxycodone Hydrochloride 5 MG Or al Tablet [Percocet] 12/23/2020 12:00:00 AM EDT eCW1 ([facility]) Acetaminophen 325 MG / Oxycodone Hydrochloride 5 MG Or al Tablet [Percocet] 12/23/2020 12:00:00 AM EDT eCW1 ([facility]) Acetaminophen 325 MG / Oxycodone Hydrochloride 5 MG Or al Tablet [Percocet] 12/23/2020 12:00:00 AM EDT eCW1 ([facility]) Loratadine 10 MG Oral Tablet 12/17/2020 12:00:00 AM EDT eCW1 ([facility]) Loratadine 10 MG Oral Tablet 12/17/2020 12:00:00 AM EDT eCW1 ([facility]) Loratadine 10 MG Oral Tablet 12/17/2020 12:00:00 AM EDT eCW1 ([facility]) Loratadine 10 MG Oral Tablet 12/17/2020 12:00:00 AM EDT eCW1 ([facility]) Loratadine 10 MG Oral Tablet 12/17/2020 12:00:00 AM EDT eCW1 ([facility]) Loratadine 10 MG Oral Tablet 12/17/2020 12:00:00 AM EDT eCW1 ([facility]) Loratadine 10 MG Oral Tablet 12/17/2020 12:00:00 AM EDT eCW1 ([facility]) Loratadine 10 MG Oral Tablet 12/17/2020 12:00:00 AM EDT eCW1 ([facility]) Loratadine 10 MG Oral Tablet 12/17/2020 12:00:00 AM EDT eCW1 ([facility]) Loratadine 10 MG Oral Tablet 12/17/2020 12:00:00 AM EDT eCW1 ([facility]) Acetaminophen 325 MG / Oxycodone Hydrochloride 5 MG Or al Tablet [Percocet] 12/17/2020 12:00:00 AM EDT eCW1 ([facility]) Loratadine 10 MG Oral Tablet 12/17/2020 12:00:00 AM EDT eCW1 ([facility]) Acetaminophen 325 MG / Oxycodone Hydrochloride 5 MG Or al Tablet [Percocet] 12/05/2020 12:00:00 AM EDT eCW1 ([facility]) Acetaminophen 325 MG / Oxycodone Hydrochloride 5 MG Or al Tablet [Percocet] 01/22/2020 12:00:00 AM EDT eCW1 ([facility]) Acetaminophen 325 MG / Oxycodone Hydrochloride 5 MG Or al Tablet [Percocet] 01/22/2020 12:00:00 AM EDT eCW1 ([facility])
--- OUTSIDE RECORDS SUMMARY | 2021-02-05 21:05 | CCD ---
Author Author [facility] Organization [facility] Address Unknown Phone Unavailable Care Team Providers Care Bag Shaker Name Role Phone TURRIN, CIRILO Unavailable Unavailable [...] is protected by Article 27-F of the [facility] Public Health law. If you continue you may have access to information: Regarding HIV / AIDS; Provided by facilities licensed or operated by the [facility] Office of Mental Health; or Provided by the [facility] Office for People With Developmental Disabilities. If such information is present, then the following [facility] mandated warning applies: This information has [...] law may result in a fine or [place] health care facility sentence or both. A general authorization for the release of medical or other information is NOT sufficient authorization for further disc losure. Allergies and Adverse Reactions Type Description Substance Reaction Status Data Source(s ) No Known Drug Allergies No Known Drug Allergies [facility] Family History Family Member Name Family Member Gender Family Member Status Date o f Status Description Data Source(s) Unknown Female Problem MEDENT ([facility] Encounters Encounter Providers Location Date Indications Data Source(s ) Emergency Attender: CIRILO Krausesultant: STAFF NON 02/04/2021 12:12:00 AM EST [facility] Patient admitted. Unknown [address] [facility] [place] [address] 01/28/2021 12:00:00 AM EDT eCW1 ([facility]) Unknown [address] [facility] [place] [address] 01/23/2021 12:00:00 AM EDT eCW1 ([facility]) Unknown [address] [facility] [place] [address] 01/21/2021 12:00:00 AM EDT eCW1 ([facility]) [place] [address] [facility] [address] 01/20/2021 12:00:00 AM EDT eCW1 ([facility]) Unknown [address] [facility] [address] 01/14/2021 12:00:00 AM EDT eCW1 ([facility]) Unknown [address] [facility] [address] 01/10/2021 12:00:00 AM EDT eCW1 ([facility]) Unknown [address] [facility] [address] 01/08/2021 12:00:00 AM EDT eCW1 ([facility]) Unknown [address] [facility] [address] 12/26/2020 12:00:00 AM EDT eCW1 ([facility]) Unknown [address] [facility] [address] 12/19/2020 12:00:00 AM EDT eCW1 ([facility]) Outpatient [address] [facility] [address] 12/17/2020 12:00:00 AM EDT eCW1 ([facility]) Unknown [address] [facility] [address] 12/16/2020 12:00:00 AM EDT eCW1 ([facility]) Unknown [address] [facility] [address] 12/03/2020 12:00:00 AM EDT eCW1 ([facility]) Outpatient [facility] 09/11/2020 01:07:00 PM EDT [id number] [facility] [id number] Unknown [address] [facility] [address] 02/07/2020 12:00:00 AM EST eCW1 ([facility]) Unknown [address] [facility] [address] 01/18/2020 12:00:00 AM EDT eCW1 ([facility]) Unknown [address] [facility] [address] 01/17/2020 12:00:00 AM EDT eCW1 ([facility]) Medications Medication Brand Name Start Date Product Form Dose Route Admi nistrative Instructions Pharmacy Instructions Status Indications Reaction Description Data Source(s) Acetaminophen 325 MG / Oxycodone Hydroch loride 5 MG Oral Tablet [Percocet] Percocet 5-325 MG Percocet 5-325 MG 01/23/2021 12:00:00 AM EDT 1 .0 {tablet_as_needed} active Percocet 5-32 5 MG eCW1 ([facility]) Acetaminophen 325 MG / Oxycodone Hydroch loride 5 MG Oral Tablet [Percocet] Percocet 5-325 MG Percocet 5-325 MG 01/23/2021 12:00:00 AM EDT 1 .0 {tablet_as_needed} active eCW1 ([facility]) Acetaminophen 325 MG / Oxycodone Hydroch loride 5 MG Oral Tablet [Percocet] Percocet 5-325 MG Percocet 5-325 MG 01/23/2021 12:00:00 AM EDT 1 .0 {tablet_as_needed} active Percocet 5-32 5 MG eCW1 ([facility]) Acetaminophen 325 MG / Oxycodone Hydroch loride 5 MG Oral Tablet [Percocet] Percocet 5-325 MG Percocet 5-325 MG 01/14/2021 12:00:00 AM EDT 1 .0 {tablet_as_needed} active Percocet 5-32 5 MG eCW1 ([facility]) Acetaminophen 325 MG / Oxycodone Hydroch loride 5 MG Oral Tablet [Percocet] Percocet 5-325 MG Percocet 5-325 MG 01/14/2021 12:00:00 AM EDT 1 .0 {tablet_as_needed} active Percocet 5-32 5 MG eCW1 ([facility]) Acetaminophen 325 MG / Oxycodone Hydroch loride 5 MG Oral Tablet [Percocet] Percocet 5-325 MG Percocet 5-325 MG 01/14/2021 12:00:00 AM EDT 1 .0 {tablet_as_needed} active Percocet 5-32 5 MG eCW1 ([facility]) Acetaminophen 325 MG / Oxycodone Hydroch loride 5 MG Oral Tablet [Percocet] Percocet 5-325 MG Percocet 5-325 MG 01/14/2021 12:00:00 AM EDT 1 .0 {tablet_as_needed} active Percocet 5-32 5 MG eCW1 ([facility]) Acetaminophen 325 MG / Oxycodone Hydroch loride 5 MG Oral Tablet [Percocet] Percocet 5-325 MG Percocet 5-325 MG 12/23/2020 12:00:00 AM EDT 1 .0 {tablet_as_needed} active Percocet 5-32 5 MG eCW1 ([facility]) Acetaminophen 325 MG / Oxycodone Hydroch loride 5 MG Oral Tablet [Percocet] Percocet 5-325 MG Percocet 5-325 MG 12/23/2020 12:00:00 AM EDT 1 .0 {tablet_as_needed} active Percocet 5-32 5 MG eCW1 ([facility]) Acetaminophen 325 MG / Oxycodone Hydroch loride 5 MG Oral Tablet [Percocet] Percocet 5-325 MG Percocet 5-325 MG 12/23/2020 12:00:00 AM EDT 1 .0 {tablet_as_needed} active Percocet 5-32 5 MG eCW1 ([facility]) Acetaminophen 325 MG / Oxycodone Hydroch loride 5 MG Oral Tablet [Percocet] Percocet 5-325 MG Percocet 5-325 MG 12/17/2020 12:00:00 AM EDT 1 .0 {tablet_as_needed} active Percocet 5-32 5 MG eCW1 ([facility]) Loratadine 10 MG Oral Tablet Loratadine 10 MG 12/17/2020 12:00:00 A M EDT 1.0 {tablet} active Loratadine 10 MG eCW1 ( [facility]) Loratadine 10 MG Oral Tablet Loratadine 10 MG 12/17/2020 12:00:00 A M EDT 1.0 {tablet} active Loratadine 10 MG eCW1 ( [facility]) Loratadine 10 MG Oral Tablet Loratadine 10 MG 12/17/2020 12:00:00 A M EDT 1.0 {tablet} active Loratadine 10 MG eCW1 ( [facility]) Loratadine 10 MG Oral Tablet Loratadine 10 MG 12/17/2020 12:00:00 A M EDT 1.0 {tablet} active Loratadine 10 MG eCW1 ( [facility]) Loratadine 10 MG Oral Tablet Loratadine 10 MG 12/17/2020 12:00:00 A M EDT 1.0 {tablet} active Loratadine 10 MG eCW1 ( [facility]) Loratadine 10 MG Oral Tablet Loratadine 10 MG 12/17/2020 12:00:00 A M EDT 1.0 {tablet} active Loratadine 10 MG eCW1 ( [facility]) Loratadine 10 MG Oral Tablet Loratadine 10 MG 12/17/2020 12:00:00 A M EDT 1.0 {tablet} active Loratadine 10 MG eCW1 ( [facility]) Loratadine 10 MG Oral Tablet Loratadine 10 MG 12/17/2020 12:00:00 A M EDT 1.0 {tablet} active eCW1 ([facility]) Loratadine 10 MG Oral Tablet Loratadine 10 MG 12/17/2020 12:00:00 A M EDT 1.0 {tablet} active Loratadine 10 MG eCW1 ( [facility]) Loratadine 10 MG Oral Tablet Loratadine 10 MG 12/17/2020 12:00:00 A M EDT 1.0 {tablet} active Loratadine 10 MG eCW1 ( [facility]) Loratadine 10 MG Oral Tablet Loratadine 10 MG 12/17/2020 12:00:00 A M EDT 1.0 {tablet} active Loratadine 10 MG eCW1 ( [facility]) Acetaminophen 325 MG / Oxycodone Hydroch loride 5 MG Oral Tablet [Percocet] Percocet 5-325 MG Percocet 5-325 MG 12/05/2020 12:00:00 AM EDT 1 .0 {tablet_as_needed} suspended Percocet 5- 325 MG eCW1 ([facility]) Acetaminophen 325 MG / Oxycodone Hydroch loride 5 MG Oral Tablet [Percocet] Percocet 5-325 MG Percocet 5-325 MG 12/05/2020 12:00:00 AM EDT 1 .0 {tablet_as_needed} suspended Percocet 5- 325 MG eCW1 ([facility]) Acetaminophen 325 MG / Oxycodone Hydroch loride 5 MG Oral Tablet [Percocet] Percocet 5-325 MG Percocet 5-325 MG 12/05/2020 12:00:00 AM EDT 1 .0 {tablet_as_needed} suspended Percocet 5- 325 MG eCW1 ([facility]) Acetaminophen 325 MG / Oxycodone Hydroch loride 5 MG Oral Tablet [Percocet] Percocet 5-325 MG Percocet 5-325 MG 12/05/2020 12:00:00 AM EDT 1 .0 {tablet_as_needed} active Percocet 5-32 5 MG eCW1 ([facility]) Acetaminophen 325 MG / Oxycodone Hydroch loride 5 MG Oral Tablet [Percocet] Percocet 5-325 MG Percocet 5-325 MG 12/05/2020 12:00:00 AM EDT 1 .0 {tablet_as_needed} suspended Percocet 5- 325 MG eCW1 ([facility]) Acetaminophen 325 MG / Oxycodone Hydroch loride 5 MG Oral Tablet [Percocet] Percocet 5-325 MG Percocet 5-325 MG 12/05/2020 12:00:00 AM EDT 1 .0 {tablet_as_needed} suspended Percocet 5- 325 MG eCW1 ([facility]) Acetaminophen 325 MG / Oxycodone Hydroch loride 5 MG Oral Tablet [Percocet] Percocet 5-325 MG Percocet 5-325 MG 12/05/2020 12:00:00 AM EDT 1 .0 {tablet_as_needed} suspended Percocet 5- 325 MG eCW1 ([facility]) Acetaminophen 325 MG / Oxycodone Hydroch loride 5 MG Oral Tablet [Percocet] Percocet 5-325 MG Percocet 5-325 MG 12/05/2020 12:00:00 AM EDT 1 .0 {tablet_as_needed} suspended Percocet 5- 325 MG eCW1 ([facility]) Acetaminophen 325 MG / Oxycodone Hydroch loride 5 MG Oral Tablet [Percocet] Percocet 5-325 MG Percocet 5-325 MG 12/05/2020 12:00:00 AM EDT 1 .0 {tablet_as_needed} suspended Percocet 5- 325 MG eCW1 ([facility]) Acetaminophen 325 MG / Oxycodone Hydroch loride 5 MG Oral Tablet [Percocet] Percocet 5-325 MG Percocet 5-325 MG 12/05/2020 12:00:00 AM EDT 1 .0 {tablet_as_needed} suspended eCW 1 ([facility]) Acetaminophen 325 MG / Oxycodone Hydroch loride 5 MG Oral Tablet [Percocet] Percocet 5-325 MG Percocet 5-325 MG 12/05/2020 12:00:00 AM EDT 1 .0 {tablet_as_needed} suspended Percocet 5- 325 MG eCW1 ([facility]) Acetaminophen 325 MG / Oxycodone Hydroch loride 5 MG Oral Tablet [Percocet] Percocet 5-325 MG Percocet 5-325 MG 12/05/2020 12:00:00 AM EDT 1 .0 {tablet_as_needed} suspended Percocet 5- 325 MG eCW1 ([facility]) Naproxen 500 MG Oral Tablet Naproxen 07/30/2020 12:00:00 AM EDT ORAL active MEDENT ([facility]) Loratadine 10 MG Oral Capsule Loratadine 07/04/2020 12:00:00 AM EDT ORAL active MEDENT ([facility]) Ibuprofen 800 MG Oral Tablet Ibuprofen 04/05/2020 12:00:00 AM EST ORAL active MEDENT ([facility]) Amlodipine 5 MG Oral Tablet Amlodipine Besylate 01/25/2020 12:00:00 A M EDT ORAL active MEDENT ([facility]) Lisinopril 40 MG Oral Tablet Lisinopril 01/25/2020 12:00:00 AM EDT ORAL active MEDENT ([facility]) Omeprazole 40 MG Delayed Release Oral Capsule Omeprazole 01/25/2020 12:00:00 AM EDT ORAL active MEDENT ([facility]) Acetaminophen 325 MG / Oxycodone Hydroch loride 5 MG Oral Tablet [Percocet] Percocet 5-325 MG Percocet 5-325 MG 01/22/2020 12:00:00 AM EDT 1 .0 {tablet_as_needed} active Percocet 5-32 5 MG eCW1 ([facility]) Acetaminophen 325 MG / Oxycodone Hydroch loride 5 MG Oral Tablet [Percocet] Percocet 5-325 MG Percocet 5-325 MG 01/22/2020 12:00:00 AM EDT 1 .0 {tablet_as_needed} active Percocet 5-32 5 MG eCW1 ([facility]) Acetaminophen 325 MG / Oxycodone Hydroch loride 5 MG Oral Tablet [Percocet] Percocet 5-325 MG Percocet 5-325 MG 01/22/2020 12:00:00 AM EDT 1 .0 {tablet_as_needed} active Percocet 5-32 5 MG eCW1 ([facility]) Acetaminophen 325 MG / Oxycodone Hydroch loride 5 MG Oral Tablet [Percocet] Percocet 5-325 MG Percocet 5-325 MG 01/22/2020 12:00:00 AM EDT 1 .0 {tablet_as_needed} active Percocet 5-32 5 MG eCW1 ([facility]) Insurance Providers Payer name Policy type / Coverage type Policy ID Covered republican ID Covered republican's relationship to king Policy King Plan Information [facility] Health [facility] [id number] S elf NYCDFHP [facility] Individual Policy [id number] S elf [id number] Medicaid S [id number] S [id number] [place] P [id number] S [id number] Medicaid S [id number] S [id number] Managed Care - Community Plan [facility] P [id number] S [id number] Managed Care - Community Plan [facility] P [id number] S [id number] Managed Care - Community Plan [facility] P [id number] S [id number] Medicaid S [id number] S [id number] [facility] [id number] Self [facility] [id number] Self [facility] Care o Commercial [id number] Self [id number] ANSI-Medicaid [id number] ANSI-Medicaid [id number] ANSI-Medicaid [id number] ANSI-Medicaid [id number] ANSI-Medicaid [id number] ANSI-Medicaid [id number] ANSI-Medicaid [id number] ANSI-Medicaid [id number] ANSI-Medicaid [id number] ANSI-Medicaid [id number] ANSI-Medicaid [id number] ANSI-Medicaid [id number] ANSI-Medicaid [id number] ANSI-Medicaid [id number] ANSI-Medicaid [id number] ANSI-Medicaid [id number] ANSI-Medicaid [id number] ANSI-Medicaid [id number] ANSI-Medicaid [id number] ANSI-Medicaid [id number] ANSI-Medicaid [id number] [facility] OFFICE OF MENTAL HEALTH C#[id number] S C#[id number] C#[id number] S C#[id number] ANSI-Medicaid [id number] ANSI-Medicaid [id number] ANSI-Medicaid [id number] ANSI-Medicaid [id number] ANSI-Medicaid [id number] ANSI-Medicaid [id number] ANSI-Medicaid [id number] ANSI-Medicaid [id number] ANSI-Medicaid [id number] ANSI-Medicaid [id number] ANSI-Medicaid [id number] ANSI-Medicaid [id number] ANSI-Medicaid [id number] ANSI-Medicaid [id number] ANSI-Medicaid [id number] ANSI-Medicaid [id number] ANSI-Medicaid [id number] ANSI-Medicaid [id number] ANSI-Medicaid [id number] ANSI-Medicaid [id number] ANSI-Medicaid [id number] ANSI-Medicaid [id number] ANSI-Medicaid [id number] SELF PAY ONLY [id number] SP [id number] [employer] COMMUNITY PLAN [facility] [id number] SP [id number] [facility]CA[facility]) O [id number] S [id number] UNHC AMERICHOICE XIX HMO [id number] 18 [id number] Self Pay P [id number] S [id number] Managed Care - Community Plan [facility] P [id number] S [id number] [facility] COMMUNITY PLAN [facility] [id number] SP [id number] UNHC COMMUNITY PLAN [facility] [id number] SP [id number] SELF PAY UNAVAILABLE SP UNAVAILA BLE SELF PAY ONLY [id number] SP [id number] Medicaid [place] Medigap Part B [id number] Self AMERICHOICE UNHC XIX [facility] [id number] BLUE CROSS VALENCIA PLAN [id number] SP [id number] Managed Care - Community Plan [facility] P UNAVAILABLE S UNAVAILABLE D [facility] O [id number] S [id number] Medicaid Dental O [id number] S [id number] Self Pay P UNAVAILABLE S UNAVAILA BLE MEDICAID -O/P EMERGENCY ROOM [id number] BLUE CROSS BLUE SHIELD-O/P [id number] BLUE CROSS BLUE SHIELD-PHYSICIAN [id number] [facility] MEDICAID [id number] SP [id number] X [id number] [facility] [id number] SP [id number] UN COMMUNITY PLAN [facility] [id number] SP [id number] [facility] COMMUNITY PLAN [facility] [id number] SP [id number] [facility] DEPT [id number] SP [id number] Medicaid P [id number] S [id number] MEDICAID [id number] SP [id number] UN COMMUNITY PLAN [facility] [id number] SP [id number] MEDICAID [id number] SP [id number] ANS-Medicaid [id number] ANS-Medicaid [id number] ANS-Medicaid [id number] Problems, Conditions, and Diagnoses Code Display Name Description Problem Type Effective Dates Data Source(s) J30.1 54567604 Seasonal allergic rhinitis due to pollen Problem 12/17/2020 12:00:00 AM EDT eCW1 ([facility]) Surgeries/Procedures No Information Results ID Date Data Source [id number] 02/04/2021 01:44:00 AM EST [facility] Name Value Range Interpretation Code Description Data Pau rce(s) Supporting Document(s) RAPID STREP NEGATIVE NORMAL: NEGATIVE [facility] RAPID STREP REENTER NEGATIVE NORMAL: NEGATIVE [facility] { PROCEDURAL CONTROL VALID ){ KIT LOT # [id number] ){ KIT EXP DATE 04-25-22 )The Strep [...] basis for treatment. ID Date Data Source [id number] 11/26/2020 07:34:00 AM EDT [facility] Name Value Range Interpretation Code Description Data Pau rce(s) Supporting Document(s) SARS-CoV-2 (COVID-19) RNA [Presence] in Respiratory specimen by DORIE with probe detection Not Detected [facility] This lab was ordered by [employer] and reported by [employer] ID Date Data Source [id number] 10/03/2020 06:00:00 AM EDT [facility] Name Value Range Interpretation Code Description Data Pau rce(s) Supporting Document(s) SARS-CoV-2 (COVID-19) RNA [Presence] in Respiratory specimen by DORIE with probe detection Not Detected [facility] This lab was ordered by [facility] and reported by [employer] ID Date Data Source [id number] 09/13/2020 01:40:[address] [facility] Name: LARON STROUD JR DIN: [id number] Facility: [facility] : 1965 Physician: Felice Nye MD Date of Service: 09/11/20 EXAM: CHEST The lungs, mediastinum and chest wall are unremarkable. cc: Dictation Date/Time: 09/12/20 1805 <Electronically signed by Komal King MD> Transcribed Date/Time: 09/13/20 1340 09/13/20 1413 Private Secretary: YULIANA Name Value Range Interpretation Code Description Data Pau rce(s) Supporting Document(s) ID Date Data Source [id number] 09/05/2020 07:54:00 AM EDT [facility] Name Value Range Interpretation Code Description Data Pau rce(s) Supporting Document(s) SARS-CoV-2 (COVID-19) RNA [Presence] in Respiratory specimen by DORIE with probe detection Not Detected [facility] This lab was ordered by [facility] and reported by [employer]. Procedure Social History Code Duration Value Status Description Data Source(s ) Smoking 12/17/2020 12:00:00 AM EDT Former Smoker completed Former Smoker eCW1 ([facility]) Smoking 12/17/2020 12:00:00 AM EDT Former Smoker completed Former Smoker eCW1 ([facility]) Smoking 12/17/2020 12:00:00 AM EDT Former Smoker completed Former Smoker eCW1 ([facility]) Smoking 12/17/2020 12:00:00 AM EDT Former Smoker completed Former Smoker eCW1 ([facility]) Smoking 12/17/2020 12:00:00 AM EDT Former Smoker completed Former Smoker eCW1 ([facility]) Smoking 12/17/2020 12:00:00 AM EDT Former Smoker completed Former Smoker eCW1 ([facility]) Smoking 12/17/2020 12:00:00 AM EDT Former Smoker completed Former Smoker eCW1 ([facility]) Smoking 12/17/2020 12:00:00 AM EDT Former Smoker completed Former Smoker eCW1 ([facility]) Smoking 12/17/2020 12:00:00 AM EDT Former Smoker completed Former Smoker eCW1 ([facility]) Smoking 12/17/2020 12:00:00 AM EDT Former Smoker completed Former Smoker eCW1 ([facility]) Smoking 12/17/2020 12:00:00 AM EDT Former Smoker completed Former Smoker eCW1 ([facility]) Smoking 02/07/2020 12:00:00 AM EST Former Smoker completed Former Smoker eCW1 ([facility]) Smoking 02/07/2020 12:00:00 AM EST Former Smoker completed Former Smoker eCW1 ([facility]) Vital Signs ID Date Data Source UNK Name Value Range Interpretation Code Description Data Source(s) Body weight 80.83 kg 80.83 kg eCW1 ([facility]) Body weight 178.2 [lb_av] 178.2 [lb_av] eCW1 (On license of [facility]) Body height 72.5 [in_i] 72.5 [in_i] eCW1 ([facility]) Body mass index (BMI) [Ratio] 23.83 kg/m2 23.83 kg/m2 W1 ([facility]) Heart rate 64 /min 64 /min eCW1 ([facility]) Respiratory rate 18 /min 18 /min eCW1 ([facility]) Body temperature 99.2 [degF] 99.2 [degF] eCW1 ( [facility]) Systolic blood pressure 118 mm[Hg] 118 mm[Hg] e CW1 ([facility]) Diastolic blood pressure 76 mm[Hg] 76 mm[Hg] eCW1 ([facility]) Systolic blood pressure 146 mm[Hg] 146 mm[Hg] M EDENT ([facility]) Diastolic blood pressure 74 mm[Hg] 74 mm[Hg] MEDENT ([facility]) Heart rate 69 /min 69 /min MEDENT ([facility]) Body weight 177.00 [lb_av] 177.00 [lb_av] MEDEN T ([facility]) Systolic blood pressure 113 mm[Hg] 113 mm[Hg] M EDENT ([facility]) Diastolic blood pressure 66 mm[Hg] 66 mm[Hg] MEDENT ([facility]) Heart rate 73 /min 73 /min [facility] [facility] Body temperature 98.0 [degF] 98.0 [degF] MEDENT ([facility]) Body weight 163.00 [lb_av] 163.00 [lb_av] MEDEN T ([facility]) Patient Treatment Plan of Care Planned Activity Planned Date Details Description Data Source (s) Acetaminophen 325 MG / Oxycodone Hydrochloride 5 MG Or al Tablet [Percocet] 01/23/2021 12:00:00 AM EDT eCW1 ([facility]) Acetaminophen 325 MG / Oxycodone Hydrochloride 5 MG Or al Tablet [Percocet] 01/23/2021 12:00:00 AM EDT eCW1 ([facility]) Acetaminophen 325 MG / Oxycodone Hydrochloride 5 MG Or al Tablet [Percocet] 01/23/2021 12:00:00 AM EDT eCW1 ([facility]) Acetaminophen 325 MG / Oxycodone Hydrochloride 5 MG Or al Tablet [Percocet] 01/14/2021 12:00:00 AM EDT eCW1 ([facility]) Acetaminophen 325 MG / Oxycodone Hydrochloride 5 MG Or al Tablet [Percocet] 01/14/2021 12:00:00 AM EDT eCW1 ([facility]) Acetaminophen 325 MG / Oxycodone Hydrochloride 5 MG Or al Tablet [Percocet] 01/14/2021 12:00:00 AM EDT eCW1 ([facility]) Acetaminophen 325 MG / Oxycodone Hydrochloride 5 MG Or al Tablet [Percocet] 01/14/2021 12:00:00 AM EDT eCW1 ([facility]) Acetaminophen 325 MG / Oxycodone Hydrochloride 5 MG Or al Tablet [Percocet] 12/23/2020 12:00:00 AM EDT eCW1 ([facility]) Acetaminophen 325 MG / Oxycodone Hydrochloride 5 MG Or al Tablet [Percocet] 12/23/2020 12:00:00 AM EDT eCW1 ([facility]) Acetaminophen 325 MG / Oxycodone Hydrochloride 5 MG Or al Tablet [Percocet] 12/23/2020 12:00:00 AM EDT eCW1 ([facility]) Loratadine 10 MG Oral Tablet 12/17/2020 12:00:00 AM EDT eCW1 ([facility]) Loratadine 10 MG Oral Tablet 12/17/2020 12:00:00 AM EDT eCW1 ([facility]) Loratadine 10 MG Oral Tablet 12/17/2020 12:00:00 AM EDT eCW1 ([facility]) Loratadine 10 MG Oral Tablet 12/17/2020 12:00:00 AM EDT eCW1 ([facility]) Loratadine 10 MG Oral Tablet 12/17/2020 12:00:00 AM EDT eCW1 ([facility]) Loratadine 10 MG Oral Tablet 12/17/2020 12:00:00 AM EDT eCW1 ([facility]) Loratadine 10 MG Oral Tablet 12/17/2020 12:00:00 AM EDT eCW1 ([facility]) Loratadine 10 MG Oral Tablet 12/17/2020 12:00:00 AM EDT eCW1 ([facility]) Loratadine 10 MG Oral Tablet 12/17/2020 12:00:00 AM EDT eCW1 ([facility]) Loratadine 10 MG Oral Tablet 12/17/2020 12:00:00 AM EDT eCW1 ([facility]) Acetaminophen 325 MG / Oxycodone Hydrochloride 5 MG Or al Tablet [Percocet] 12/17/2020 12:00:00 AM EDT eCW1 ([facility]) Loratadine 10 MG Oral Tablet 12/17/2020 12:00:00 AM EDT eCW1 ([facility]) Acetaminophen 325 MG / Oxycodone Hydrochloride 5 MG Or al Tablet [Percocet] 12/05/2020 12:00:00 AM EDT eCW1 ([facility]) Acetaminophen 325 MG / Oxycodone Hydrochloride 5 MG Or al Tablet [Percocet] 01/22/2020 12:00:00 AM EDT eCW1 ([facility]) Acetaminophen 325 MG / Oxycodone Hydrochloride 5 MG Or al Tablet [Percocet] 01/22/2020 12:00:00 AM EDT eCW1 ([facility])
[2021-02-05 21:52] LABS: BASO # 0.1 10^3/uL (0.0-0.2); BASO % 0.8 % (0.0-1.0); EOS # 0.2 10^3/uL (0.0-0.5); EOS % 2.4 % (0.0-3.0); HEMATOCRIT 35.3 % (42.0-52.0); HEMOGLOBIN 11.4 g/dl (13.5-17.5); LYMPH # 2.9 10^3/uL (1.5-5.0); LYMPH % 31.9 % (24.0-44.0); MEAN CORPUSCULAR HEMOGLOBIN 30.5 pg (27.0-33.0); MEAN CORPUSCULAR HGB CONC 32.3 g/dl (32.0-36.5); MEAN CORPUSCULAR VOLUME 94.4 fl (80.0-96.0); MONO # 1.1 10^3/uL (0.0-0.8); MONO % 12.1 % (2.0-8.0); NEUTROPHILS # 4.7 10^3/uL (1.5-8.5); NEUTROPHILS % 52.4 % (36.0-66.0); PLATELET COUNT, AUTOMATED 353 10^3/uL (150-450); RED BLOOD COUNT 3.74 10^6/uL (4.30-6.10)
--- NOTE | 2021-02-06 06:09 | ECGEPIP ---
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
== END 2021-02-05 23:28 | disposition home or self-care (01) ==
LOC: M ED 16:50
DX: R53.1 Weakness (principal); N17.9 Acute kidney failure, unspecified; I10 Essential (primary) hypertension; K21.9 Gastro-esophageal reflux disease without esophagitis; F17.200 Nicotine dependence, unspecified, uncomplicated; Z79.899 Other long term (current) drug therapy

== ENCOUNTER 2021-03-23 09:58 | Emergency (ER) | payer OTHER ==
[~2021-03-23] VITALS: Ht 182.9 cm; Wt 86.4 kg
[2021-03-23] MEDS ORDERED: PERC5TAB12 PO (12:03)
[2021-03-23 12:20] VITALS: BP 150/85
== END 2021-03-23 12:30 | disposition home or self-care (01) ==
LOC: M ED 11:08
DX: Z76.0 Encounter for issue of repeat prescription (principal); G89.29 Other chronic pain; M54.50 Low back pain, unspecified; I10 Essential (primary) hypertension; K21.9 Gastro-esophageal reflux disease without esophagitis

== ENCOUNTER 2021-03-28 13:06 | Emergency (ER) | payer OTHER ==
[~2021-03-28] VITALS: Ht 182.9 cm; Wt 79.6 kg
[~2021-03-28 13:06] MED LIST changes: +PERC5TAB12 PO
[2021-03-28 15:28] VITALS: BP 138/91
== END 2021-03-28 15:57 | disposition home or self-care (01) ==
LOC: M ED 13:06
DX: Z76.0 Encounter for issue of repeat prescription (principal); I10 Essential (primary) hypertension; K21.9 Gastro-esophageal reflux disease without esophagitis; F17.200 Nicotine dependence, unspecified, uncomplicated

== ENCOUNTER 2021-04-23 12:45 | Emergency (ER) | payer OTHER ==
[~2021-04-23] VITALS: Ht 182.9 cm; Wt 86.4 kg
[2021-04-23 12:45] VITALS: BP 129/94
[~2021-04-23 12:45] MED LIST changes: -OMEP-221 PO; +OMEP40CA5 PO
[2021-04-23] MEDS ORDERED: NORCO, ANEXSIA 5/325MG TABLET (HYDROcodone/ACETAMINOPHEN) PO ONE (14:40)
[2021-04-23] MEDS ORDERED: GABA-283 PO (14:45)
== END 2021-04-23 14:54 | disposition home or self-care (01) ==
LOC: M ED 12:45
DX: Z76.0 Encounter for issue of repeat prescription (principal); M54.50 Low back pain, unspecified; I10 Essential (primary) hypertension; K21.9 Gastro-esophageal reflux disease without esophagitis; Z79.899 Other long term (current) drug therapy

== ENCOUNTER 2021-05-09 12:23 | Emergency (ER) | payer OTHER ==
[~2021-05-09] VITALS: Ht 182.9 cm; Wt 72.1 kg
[~2021-05-09 12:23] MED LIST changes: +GABA-283 PO
[2021-05-09] MEDS ORDERED: AMLO1TAB24 (12:32)
[2021-05-09] MEDS ORDERED: LISI40TA4 (12:32)
[2021-05-09] MEDS ORDERED: OMEP40CA5 (12:32)
[2021-05-09] MEDS ORDERED: HYDR-3713 PO (14:21)
[2021-05-09 14:33] VITALS: BP 122/66
== END 2021-05-09 14:34 | disposition home or self-care (01) ==
LOC: M ED 12:23
DX: Z76.0 Encounter for issue of repeat prescription (principal); M54.50 Low back pain, unspecified; I10 Essential (primary) hypertension; K21.9 Gastro-esophageal reflux disease without esophagitis; Z79.84 Long term (current) use of oral hypoglycemic drugs; Z79.899 Other long term (current) drug therapy

== ENCOUNTER 2021-07-20 09:18 | Emergency (ER) | payer OTHER ==
[~2021-07-20] VITALS: Ht 185.4 cm; Wt 70.8 kg
[2021-07-20 09:18] VITALS: BP 112/59
[~2021-07-20 09:18] MED LIST changes: +AMLO1TAB24; +HYDR-3713 PO; +LISI40TA4; +OMEP40CA5
[2021-07-20] MEDS ORDERED: ACETAMINOPHEN 500 MG TAB PO ONE (11:40)
[2021-07-20] MEDS ORDERED: methocarbamoL 500 MG TAB PO ONE (11:40)
[2021-07-20] MEDS ORDERED: LIDOCAINE 5% (LIDODERM) PATCH TD ONE (11:40)
[2021-07-20] MEDS ORDERED: **NOTE PATIENT COMMENT** MISC XX SCH (21:00)
== END 2021-07-20 11:53 | disposition left against medical advice (07) ==
LOC: M ED 09:18
DX: M54.50 Low back pain, unspecified (principal); K21.9 Gastro-esophageal reflux disease without esophagitis; I10 Essential (primary) hypertension; M51.36 Other intervertebral disc degeneration, lumbar region; F17.200 Nicotine dependence, unspecified, uncomplicated; Z53.21 Procedure and treatment not carried out due to patient leaving prior to being seen by health care provider; Z79.811 Long term (current) use of aromatase inhibitors; Z79.899 Other long term (current) drug therapy

== ENCOUNTER 2023-04-23 22:47 | Emergency (ER) | payer OTHER ==
[~2023-04-23] VITALS: Ht 188 cm; Wt 88.6 kg
[~2023-04-23 22:47] MED LIST changes: -GABA-283 PO; +GABA-284 PO
[2023-04-24] MEDS ORDERED: predniSONE 20 MG TAB PO ONE (02:00)
[2023-04-24] MEDS ORDERED: GABAPENTIN 300 MG CAP PO ONE (02:00)
[2023-04-24] MEDS ORDERED: GABA-282 PO (02:23)
[2023-04-24] MEDS ORDERED: PRED20TA PO (02:23)
[2023-04-24] MEDS ORDERED: lisinopriL 40MG TAB PO ONE (08:45)
[2023-04-24] MEDS ORDERED: AMLO1TAB24 PO (08:45)
[2023-04-24] MEDS ORDERED: LISI40TA4 PO (08:45)
[2023-04-24] MEDS ORDERED: amLODIPine 5 MG TAB PO ONE (08:45)
[2023-04-24 08:48] VITALS: BP 188/90
[2023-04-24 08:57] VITALS: BP 188/90; TEMP 97; O2SAT 99
== END 2023-04-24 09:05 | disposition home or self-care (01) ==
LOC: M ED 22:47
DX: T69.021A Immersion foot, right foot, initial encounter (principal); M54.50 Low back pain, unspecified; I10 Essential (primary) hypertension; K21.9 Gastro-esophageal reflux disease without esophagitis; F12.10 Cannabis abuse, uncomplicated; Z79.811 Long term (current) use of aromatase inhibitors; Z79.891 Long term (current) use of opiate analgesic; Z79.52 Long term (current) use of systemic steroids; Z79.899 Other long term (current) drug therapy
CPT/HCPCS: 36415; 80047; 99284; J7512

== ENCOUNTER 2023-05-01 00:55 | Emergency (ER) | payer OTHER ==
[~2023-05-01] VITALS: Ht 182.9 cm; Wt 71.8 kg
[~2023-05-01 00:55] MED LIST changes: +GABA-282 PO; +PRED20TA PO
[2023-05-01 06:04] VITALS: BP 144/80; TEMP 98.4; O2SAT 99
== END 2023-05-01 06:58 | disposition left against medical advice (07) ==
LOC: EDBD 00:55 → M ED 00:55
DX: T69.021A Immersion foot, right foot, initial encounter (principal); T69.022A Immersion foot, left foot, initial encounter; M54.50 Low back pain, unspecified; F12.10 Cannabis abuse, uncomplicated; F17.200 Nicotine dependence, unspecified, uncomplicated; I10 Essential (primary) hypertension; Z79.891 Long term (current) use of opiate analgesic; Z79.811 Long term (current) use of aromatase inhibitors; Z79.899 Other long term (current) drug therapy

== ENCOUNTER 2023-06-24 09:14 | Emergency (ER) | payer OTHER ==
[~2023-06-24] VITALS: Ht 185.4 cm; Wt 75.3 kg
[2023-06-24] MEDS ORDERED: FERR325T19 (09:28)
[2023-06-24] MEDS ORDERED: LORA-1041 (09:28)
[2023-06-24] MEDS ORDERED: FLUT15.820 (09:28)
[2023-06-24] MEDS ORDERED: CETI-24 (09:28)
[2023-06-24] MEDS ORDERED: GABA800T4 (09:28)
[2023-06-24 11:50] VITALS: BP 121/69; TEMP 97.1; O2SAT 100
[2023-06-24] MEDS: PERCOCET 5MG/325MG TAB PO ONE (11:51)
== END 2023-06-24 12:06 | disposition home or self-care (01) ==
LOC: M ED 11:30
DX: Z76.0 Encounter for issue of repeat prescription (principal); I10 Essential (primary) hypertension; K21.9 Gastro-esophageal reflux disease without esophagitis; Z79.811 Long term (current) use of aromatase inhibitors; Z79.891 Long term (current) use of opiate analgesic; Z79.83 Long term (current) use of bisphosphonates; Z79.899 Other long term (current) drug therapy

== ENCOUNTER 2024-02-29 09:47 | Emergency (ER) | payer OTHER ==
[~2024-02-29] VITALS: Ht 185.4 cm; Wt 73.9 kg
[~2024-02-29 09:47] MED LIST changes: +CETI-24; +FERR325T19; +FLUT15.820; +GABA-1172 PO; +GABA-1635; +GABA-1635 PO; -GABA-282 PO; -GABA800T4 PO; +LORA-1041
[2024-02-29] MEDS ORDERED: AMOX875T2 PO (12:45)
[2024-02-29 13:12] VITALS: BP 136/86; TEMP 98; O2SAT 98
== END 2024-02-29 13:14 | disposition home or self-care (01) ==
LOC: M ED 09:47
DX: J01.90 Acute sinusitis, unspecified (principal); I10 Essential (primary) hypertension; K21.9 Gastro-esophageal reflux disease without esophagitis; F17.200 Nicotine dependence, unspecified, uncomplicated; Z79.899 Other long term (current) drug therapy; Z79.2 Long term (current) use of antibiotics

== ENCOUNTER 2024-03-24 01:02 | Emergency (ER) | payer OTHER ==
[~2024-03-24] VITALS: Ht 182.9 cm; Wt 73.4 kg
[~2024-03-24 01:02] MED LIST changes: +AMOX875T2 PO
[2024-03-24] MEDS: methocarbamoL 500 MG TAB PO ONE (07:39)
[2024-03-24] MEDS: ACETAMINOPHEN 500 MG TAB PO ONE (07:40)
[2024-03-24] MEDS: AUGMENTIN 875 MG TAB PO ONE (07:40)
[2024-03-24] MEDS: KETOROLAC 60MG 2ML VIAL IM ONE (07:41)
[2024-03-24] MEDS ORDERED: AMOXTAB PO (07:49)
[2024-03-24 08:20] VITALS: BP 148/78; TEMP 99.6; O2SAT 96
== END 2024-03-24 08:15 | disposition home or self-care (01) ==
LOC: M ED 01:02
DX: J32.9 Chronic sinusitis, unspecified (principal); M25.552 Pain in left hip; I10 Essential (primary) hypertension; F12.10 Cannabis abuse, uncomplicated; Z79.2 Long term (current) use of antibiotics; Z79.899 Other long term (current) drug therapy
CPT/HCPCS: 96372; 99283; J1885